=== PATIENT | male | born 1935 | race Caucasian/White ===

== ENCOUNTER 2017-11-11 11:30 | Outpatient (CLI) | payer MEDICARE, OTHER | END 2017-11-11 11:31 | disposition critical access hospital (66) | LOC: EMS 11:30 | PROVIDERS: ATTEND Surgery | DX: R47.9 Unspecified speech disturbances (principal); R41.82 Altered mental status, unspecified; R53.1 Weakness | CPT/HCPCS: A0425; A0429 ==

== ENCOUNTER 2017-11-11 11:43 | Inpatient (IN) | payer MEDICARE, OTHER ==
[2017-11-11] MEDS ORDERED: IOPAMIDOL-300 100 ML VIAL ONE (12:10)
--- NOTE | 2017-11-11 12:21 | CT Report ---
Procedure Date: 11/11/2017 Accession Number: [id number] / [id number] Procedure: CT - Head W/O CPT Code: FULL RESULT: EXAM: CT HEAD EXAM DATE: 11/11/2017 12:08 PM. CLINICAL HISTORY: Aphasia and confusion. COMPARISON: 02/17/2006. TECHNIQUE: Multiaxial CT images were obtained from the foramen magnum to the vertex. Reformats: Sagittal and coronal. IV contrast: None. In accordance with CT protocol optimization, one or more of the following dose reduction techniques were utilized for this exam: automated exposure control, adjustment of mA and/or KV based on patient size, or use of iterative reconstructive technique. FINDINGS: Parenchyma: No intraparenchymal hemorrhage. No evidence of mass, midline shift, or CT findings of acute infarction. There are old infarcts in the right caudate, left basal ganglia and left thalamus Cantor-white differentiation is distinct. Diffuse chronic microangiopathic white matter changes are evident. Extraaxial Spaces: Normal for age. No subdural or epidural collections identified. Ventricles: The ventricles and cortical sulci are enlarged, consistent with age-related tissue loss. Sinuses and orbits: Imaged paranasal sinuses, orbits, and mastoids show no significant abnormality. Bones: No evidence of fracture or calvarial defect. Other: None. IMPRESSION: Generalized age-related and chronic vascular changes without evidence of acute intracranial abnormality. Results called to Dr. Millan 12:15 PM 11/11/2017 [facility]
--- NOTE | 2017-11-11 12:40 | ED Physician Documentation ---
PD HPI FOCAL NEURO - Stated complaint Stated Complaint: STROKE LIKE SYMPTOMS - Chief complaint Chief Complaint: Neuro - History obtained from History obtained from: Patient, Family, EMS - History of Present Illness Timing - onset: Enter time (929), Today Timing - duration: Minutes Timing - details: Abrupt onset, Still present Time of symptom onset unknown: Time of onset unknown (awoke with symptoms last night was driving and felt tired.) Severity of deficit: Severe Weakness: Face, Right Associated symptoms: Other (unable to answer) Contributing factors: positive: Anticoagulated (plavix). 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 He was driving last night and this is last known normal. The son of the patient went into his room about 8:00 this morning and found that the patient was having some trouble talking. The patient had some improvement did not want to go to the hospital and then by about 1020 this morning his symptoms were profoundly worse.The patient himself is unable to give any specific history.History is obtained from the ammunition supervisor and the patient's son by telephone who is at the patient's home. Review of Systems Unable to obtain: AMS PD ED PE NORMAL - Vitals Vital signs reviewed: Yes - General General: No acute distress, Other (Thin male with a defect in the left neck appears confused and is unable to provide answers or cooperate with exam. ) - HEENT HEENT: PERRL, EOMI, Other (dry mucous membranes ) - Neck Neck: Supple, no meningeal sign, Other (There is a surgical site at the left neck that appears well healed. There is a subcutaneous fluid collection that does not appear tender. ) - Cardiac Cardiac: No murmur, Other (irregularly irregular rate and rhythm ) - Respiratory Respiratory: No respiratory distress, Clear bilaterally - Abdomen Abdomen: Soft, Non tender - Back Back: No CVA TTP, No spinal TTP - Derm Derm: Normal color, Warm and dry, No rash - Extremities Extremities: No deformity, No edema - Neuro Neuro: Other ( The patient is unable to cooperate with exam. The right arm is held in flexion, the patient is aphasic with word salad as the only comprehensible speech. Both legs drop the left arm is held out when put there but he is unable to follow comand to move the arm. ) Eye Opening: Spontaneous Motor: Localizes to Pain Verbal: Inappropriate GCS Score: 12 - Psych Psych: Normal mood, Other (affect is flat) NIHSS - Time Time: 12:00 - Level of Consciousness Level of consciousness: (1) Not alert, but arousable by minor stimulation to obey, or answer LOC Questions: (2) Answers neither correct LOC Commands: (2)Performs none - Gaze Best Gaze: (1) Partial gaze palsy - Visual Visual: (0) No loss - Facial Palsy Facial Palsy: (1) Minor paralysis - Motor Arms (both separate) Motor Arm (right): (2) Some effort against gravity Motor Arm (left): (0) No drift - Motor Legs (both separate) Motor Leg (right): (3) No effort against gravity Motor Leg (left): (3) No effort against gravity - Limb Ataxia Limb Ataxia: (2) Present in 2 limbs - Sensory Sensory: (1) Ygxd-rd-[id number] loss - Best Language Best Language: (2) Severe aphasia - Dysarthria Dysarthria: (1) Zfba-dt-obambqde dysarthria - Extinction and Inattention (formally neg Extinction and inattention: (2) Profound angel-inattention or extinction to more than one modality - Total Score/Results Total Score/Result: 23 Results - Vitals Vitals: Vital Signs - 24 hr 11/11/17 11/11/17 11:59 13:35 Temperature 36.5 C Heart Rate 55 L 57 L Respiratory 25 H 16 Rate Blood Pressure 191/76 H 212/84 H O2 Saturation 98 100 Oxygen O2 Source Room air - EKG (time done) 1236 Rate: Rate (enter#) (60) Rhythm: Atrial flutter, Atrial fibrillation QRS: LVH Compare to prior EKG: Old EKG unavailable Computer interpretation: Agree with computer - Labs Labs: Laboratory Tests 11/11/17 11/11/17 11/11/17 12:45 12:45 12:45 WBC 11.1 H RBC 3.83 L Hgb 12.5 L Hct 36.7 L MCV 95.8 H MCH 32.5 H MCHC 33.9 RDW 15.3 H Plt Count 205 MPV 8.5 Neut # (Auto) 9.4 H Lymph # (Auto) 0.9 L Curry # (Auto) 0.7 Eos # (Auto) 0.1 Baso # (Auto) 0.1 Absolute Nucleated RBC 0.00 Nucleated RBC % 0.0 PT 12.2 INR 1.1 APTT 26.7 Sodium 136 Potassium 3.8 Chloride 104 Carbon Dioxide 23 Anion Gap 9.0 BUN 19 Creatinine 0.8 Estimated GFR (MDRD) 93 Glucose 116 H Lactic Acid Calcium 8.7 Total Bilirubin 1.0 AST 18 ALT 16 Alkaline Phosphatase 62 Troponin I Total Protein 7.0 Albumin 3.8 Globulin 3.2 Albumin/Globulin Ratio 1.2 Lipase 25 11/11/17 11/11/17 12:45 12:45 WBC RBC Hgb Hct MCV MCH MCHC RDW Plt Count MPV Neut # (Auto) Lymph # (Auto) Curry # (Auto) Eos # (Auto) Baso # (Auto) Absolute Nucleated RBC Nucleated RBC % PT INR APTT Sodium Potassium Chloride Carbon Dioxide Anion Gap BUN Creatinine Estimated GFR (MDRD) Glucose Lactic Acid 1.8 Calcium Total Bilirubin AST ALT Alkaline Phosphatase Troponin I < 0.04 Total Protein Albumin Globulin Albumin/Globulin Ratio Lipase - Rads (name of study) CT head without Radiology: Prelim report reviewed (Impression: Generalized age-related and chronic vascular changes without evidence of acute intracranial abnormality.), EMP read indepedently, See rad report CTA head and neck Radiology: Prelim report reviewed (See the radiologist report for details of the impression there are no specific large vessel occlusions demonstrated on the CT a of the head and neck. There are details to the exam which are extensive.), Discussed with rads, See rad report PD MEDICAL DECISION MAKING - ED course Complexity details: reviewed old records, reviewed results, re-evaluated patient , considered differential, d/w patient, d/w family, d/w data governance consultant (Dr. Marroquin neurology at [facility] stroke center: CTA head and neck and CT head reviewed. The time of onset is unknown awoke with symptoms excludes use of tPA and CTA without large vessle occlusion will need post stroke care. Nothing specific to offer from the stroke center today. call for assistance with further care. ) ED course: 82-year-old male with recent neck surgery has appears to be in atrial fibrillation and this is a new rhythm for him and he appears to have sustained a CVA that is left him with a profound aphasia. CT of the head is without evidence of hemorrhage CTA of the neck without evidence of large vessel occlusion and the stroke team at [facility] is consulted in the case recommends conservative treatment. Dr. David was consulted in the case and will admit the patient to the hospital here. We did attempt to find records from the patient' s recent care at [facility]. We found that he likely had a biopsy done of this area ultrasound-guided about 12 days ago. I was able to speak with the patient' s son by telephone and he indicates the patient is normally in full operational mode and was driving last night. After arrangements are made for admission of the patient to the hospital he is able to get up and stand at the side of the bed to urinate and is able to talk some. - Sepsis Event Vital Signs: Vital Signs - 24 hr 11/11/17 11/11/17 11:59 13:35 Temperature 36.5 C Heart Rate 55 L 57 L Respiratory 25 H 16 Rate Blood Pressure 191/76 H 212/84 H O2 Saturation 98 100 Oxygen O2 Source Room air Departure - Departure Disposition: 66 [facility] DC/Xfer Clinical Impression: Cerebrovascular accident (CVA) Qualifiers: CVA mechanism: unspecified Qualified Code(s): I63.9 - Cerebral infarction, unspecified Condition: Stable
[2017-11-11 12:52] LABS: BASOPHILS # (AUTO) 0.1 10^3/uL (0.0-0.1); BASOPHILS % (AUTO) 0.8 %; EOSINOPHILS # (AUTO) 0.1 10^3/uL (0.0-0.7); EOSINOPHILS % (AUTO) 0.6 %; HGB - HEMOGLOBIN 12.5 g/dL (14.0-18.0); LYMPHOCYTES # (AUTO) 0.9 10^3/uL (1.5-3.5); MEAN CORPUSCULAR HEMOGLOBIN 32.5 pg (27.0-31.0); MEAN CORPUSCULAR HGB CONC 33.9 g/dL (32.0-36.0); MEAN CORPUSCULAR VOLUME 95.8 fL (80.0-94.0); MEAN PLATELET VOLUME 8.5 fL (7.4-11.4); MONOCYTES # (AUTO) 0.7 10^3/uL (0.0-1.0); MONOCYTES % (AUTO) 5.9 %; NEUTROPHILS # (AUTO) 9.4 10^3/uL (1.5-6.6); NEUTROPHILS % (AUTO) 84.7 %; PLT - PLATELET COUNT 205 10^3/uL (130-450); RED BLOOD COUNT 3.83 10^6/uL (4.70-6.10); RED CELL DISTRIBUTION WIDTH 15.3 % (12.0-15.0); WHITE BLOOD COUNT 11.1 x10^3/uL (4.8-10.8)
[2017-11-11 13:03] LABS: INR 1.1 (0.8-1.2); PT - PROTHROMBIN TIME 12.2 secs (9.9-12.6)
[2017-11-11] MEDS ORDERED: IOPAMIDOL-300 100 ML VIAL IVP ONE (13:04)
[2017-11-11 13:06] LABS: ALBUMIN 3.8 g/dL (3.2-5.5); ALBUMIN/GLOBULIN RATIO 1.2 (1.0-2.2); CALCIUM 8.7 mg/dL (8.5-10.3); CREATININE 0.8 mg/dL (0.6-1.2)
--- NOTE | 2017-11-11 13:06 | CT Report ---
Procedure Date: 11/11/2017 Accession Number: [id number] / [id number] Procedure: CT - Head Angio CPT Code: FULL RESULT: EXAM: CT ANGIOGRAM HEAD. CT SCAN OF THE HEAD WITH CONTRAST. EXAM DATE: 11/11/2017 12:34 PM CLINICAL HISTORY: 82-year-old male. Aphasia and confusion. COMPARISON: Noncontrast CT head performed concurrently TECHNIQUE: - CT Scan Head: Using a multidetector scanner, axial images were acquired from the foramen magnum to the skull vertex prior to and following contrast administration. - CT Angiogram: Using a multidetector scanner, high-resolution axial images were acquired from the skull base through vertex following rapid infusion of intravenous contrast. Reformats: Multiplanar MIP reformats were reconstructed. Nascet criteria used for stenosis measurement. IV Contrast: ISOVUE 300 80mL. In accordance with CT protocol optimization, one or more of the following dose reduction techniques were utilized for this exam: automated exposure control, adjustment of mA and/or KV based on patient size, or use of iterative reconstructive technique. FINDINGS: NON-CONTRAST HEAD: Concurrently obtain noncontrast CT head has been dictated separately. POST-CONTRAST HEAD: No abnormal enhancement. CT ANGIOGRAM HEAD: Moderate to severe atherosclerosis right carotid siphon, maximal stenosis likely greater than 70%. Moderate to severe atherosclerosis left carotid siphon, maximal stenosis likely greater than 70%. Moderate atherosclerosis V4 segment right vertebral artery, maximal stenosis 20-30%. Severe atherosclerosis V4 segment left vertebral artery, maximal stenosis likely greater than 70-80 %. Approximately 50% narrowing distal basilar artery. Irregularity of the M1 segment right MCA (series 8 image 61) with up to 20-30% narrowing. The right MCA is otherwise unremarkable. The ACAs bilaterally are unremarkable. Approximately 60% narrowing superiorly directed M2 branch left MCA (series 8 image 60). The left MCA is otherwise unremarkable. The posterior communicating arteries are not clearly visualized on either side, likely hyperplastic or aplastic. Approximately 50% narrowing P1 and P2 segments of the left NAIL FEEDER. Approximately 50% narrowing distal P1 and mid P2 segments of the left NAIL FEEDER. DURAL VENOUS SINUSES AND MAJOR CENTRAL VEINS: Patent. The right transverse sinus is dominant. IMPRESSION: 1. Concurrently obtain noncontrast CT head has been dictated separately. 2. No abnormal enhancement on the postcontrast CT head. 3. Extensive atherosclerotic vascular disease as detailed above and summarized below. No CTA evidence of hemodynamically large vessel occlusion, acute dissection, aneurysm, or vascular malformation within intracranial arteries. 4. Moderate to severe atherosclerosis right carotid siphon, maximal stenosis likely greater than 70%. 5. Moderate to severe atherosclerosis left carotid siphon, maximal stenosis likely greater than 70%. 6. Moderate atherosclerosis V4 segment right vertebral artery, maximal stenosis 20-30%. 7. Severe atherosclerosis V4 segment left vertebral artery, maximal stenosis likely greater than 70-80 %. 8. Approximately 50% narrowing distal basilar artery. 9. Diffuse irregularity of the M1 segment right MCA (series 8 image 61) with up to 20-30% narrowing. 10. Approximately 60% narrowing superiorly directed M2 branch left MCA (series 8 image 60). 11. Approximately 50% narrowing P1 and P2 segments of the left NAIL FEEDER. 12. Approximately 50% narrowing distal P1 and mid P2 segments of the left NAIL FEEDER. [facility]
--- NOTE | 2017-11-11 13:19 | CT Report ---
Procedure Date: 11/11/2017 Accession Number: [id number] / [id number] Procedure: CT - Neck Angio CPT Code: FULL RESULT: EXAM: CT ANGIOGRAM NECK EXAM DATE: 11/11/2017 12:34 PM. CLINICAL HISTORY: Aphasia and confusion. COMPARISON: CTA head performed concurrently, noncontrast CT head performed concurrently TECHNIQUE: Routine axial helical imaging was performed from the skull base through the aortic arch. Reconstructions: Routine multiplanar 3D MIP reconstructions. IV Contrast: ISOVUE 300 80mL. Evaluation of arterial stenosis is based on a NASCET method of measurement. In accordance with CT protocol optimization, one or more of the following dose reduction techniques were utilized for this exam: automated exposure control, adjustment of mA and/or KV based on patient size, or use of iterative reconstructive technique. FINDINGS: Right Carotid: Mild atherosclerosis right carotid bifurcation, no hemodynamically significant stenosis. The common carotid, internal carotid, and external carotid arteries are widely patent. No dissection, significant atherosclerotic plaque, or calcification identified. Left Carotid: The common carotid, internal carotid, and external carotid arteries are widely patent. No dissection, significant atherosclerotic plaque, or calcification identified. Vertebrals: Intracranial vertebral arteries are discussed with the separately dictated CTA head. Moderate atherosclerosis left vertebral artery origin, maximal stenosis 40-50%. The remaining left extracranial vertebral arteries unremarkable. The extracranial right vertebral artery is unremarkable. Intracranial Circulation: Concurrent dictated CTA head has been dictated separately. Other: The visualized lung apices are clear. Moderate to severe multilevel degenerative spondylosis of the visualized spine, no acute fracture or malalignment. The patient is likely status post left parotidectomy and left neck dissection. There is a nonspecific peripheral enhancing fluid collection within the left lateral neck just inferior to the expected location of the parotid gland with foci of gas, measuring maximally approximately 1.4 x 2.2 x 4.2 cm. Surgical hien within the neck from prior dissection The visualized soft tissues of the neck otherwise demonstrate no acute abnormality. IMPRESSION: 1. Concurrent dictated CTA head has been dictated separately. 2. Intracranial vertebral arteries are discussed with the separately dictated CTA head. Moderate atherosclerosis left vertebral artery origin, maximal stenosis 40-50%. The remaining left extracranial vertebral arteries unremarkable. The extracranial right vertebral artery is unremarkable. 3. No hemodynamically significant stenosis involving the extracranial carotid systems on either side. 4. The patient is likely status post left parotidectomy and left neck dissection. There is a nonspecific peripheral enhancing fluid collection within the left lateral neck just inferior to the expected location of the parotid gland with foci of gas, measuring maximally approximately 1.4 x 2.2 x 4.2 cm. Fluid collection is nonspecific for postoperative seroma versus abscess. Recommend clinical correlation. [facility] The above findings were discussed with Wyatt Millan by Dr. Jyothi Cortez at 13:17 hrs on 11/11/17.
[2017-11-11] MEDS ORDERED: ONDANSETRON 4 MG/2 ML VIAL IVP PRN (15:16)
[2017-11-11] MEDS ORDERED: SODIUM CHLORIDE FLUSH 0.9% 10 ML SYRINGE IVP PRN (15:16)
[2017-11-11] MEDS ORDERED: ACETAMINOPHEN 325 MG TABLET PO PRN (15:16)
[2017-11-11] MEDS ORDERED: cloNIDine 0.1 MG TABLET PO PRN (15:48)
--- NOTE | 2017-11-11 15:50 | HISTORY & PHYSICAL EXAMINATION ---
Chief Complaint - Chief Complaint Chief Complaint: stroke History of Present Illness - History of Present Illness HPI Comment/Other: Mr. 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 Unfortunately pt is aphasia now, currently no pt's family member is at pt's bedside, and I could not reach pt's family by phone. All pt's informations are from medical records. Pt was found normal as usual on last night. Pt's son entered into pt's room around 8am, and found pt to have trouble talking. Pt presented some improvement and did not want to go to hospital. Around 1020, pt's symptoms became significant worse. Pt presents right facial droop, significant weakness on right both upper and lower extremities. CT of head reveals unremarkable, without haemorrhage. History - Past Medical History Neuro: reports: CVA, TIA HEENT: reports: None Other Past Medical History: Active cancer. Recent tumor removal from neck. Starts chemo 11/12/17 per son. - Past Surgical History General: reports: Other - Family & Social History Family History Comment/Other: pt is aphasia, no family member is at bedside Meds/Allgy - Home Medications Home Medications: Ambulatory Orders Medication Instructions Recorded Confirmed Clopidogrel Bisulfate [Clopidogrel] 75 mg PO DAILY 11/11/17 11/11/17 Furosemide 80 mg PO DAILY 11/11/17 11/11/17 Losartan Potassium 50 mg PO DAILY 11/11/17 11/11/17 Meclizine HCl [Motion Sickness 25 mg PO QPM 11/11/17 11/11/17 Relief] - Allergies Allergies/Adverse Reactions: Allergies Allergy/AdvReac Type Severity Reaction Status Date / Time No Known Drug Allergies Allergy Verified 11/11/17 16:46 Review of Systems - Other Findings Other Findings: pt is aphasia, could not provide ROS Exam - Vital Signs Reviewed Vital Signs: Yes Vital Signs: Vital Signs x48h Temp Pulse Resp BP Pulse Ox 11/11/17 13:35 57 L 16 212/84 H 100 11/11/17 11:59 36.5 C 55 L 25 H 191/76 H 98 - Physical Exam General Appearance: positive: No acute distress, Mild distress. negative: Lethargic Eyes Bilateral: positive: Normal inspection, PERRL, No lid inflammation, Conjunctivae nml ENT: positive: Pharynx nml, No signs of dehydration. negative: Purulent nasal drainage, Pharyngeal erythema, Oral lesions Neck: positive: Nml inspection, Thyroid nml, No JVD, Trachea midline. negative : Thyromegaly, Lymphadenopathy (R), Lymphadenopathy (L), Stiff neck, Swelling/ bruising, Tracheal deviation Respiratory: positive: Chest non-tender, No respiratory distress, Breath sounds nml. negative: Wheezes, Rales, Rhonchi Cardiovascular: positive: Regular rate & rhythm, No murmur, No gallop. negative : Irregularly irregular, Extrasystoles, Tachycardia, Bradycardia, JVD present, Systolic murmur, Diastolic murmur Peripheral Pulses: positive: 2+ Abdomen: positive: Non-tender, No organomegaly, Nml bowel sounds, No distention. negative: Tenderness, Guarding, Rebound Back: positive: Nml inspection. negative: CVA tenderness (R), CVA tenderness (L ) Skin: positive: Color nml, No rash, Warm, Dry. negative: Cyanosis, Diaphoresis , Pallor Extremities: positive: Non-tender, Nml appearance. negative: Calf tenderness, Tessy's sign/cords Neurologic/Psychiatric: positive: Weakness, Facial droop, Slurred/abnml speech. negative: Motor nml Conclusion/Plan - Problem List (1) Cerebrovascular accident (CVA) Conclusion/Plan: pt is aphasia currently. pt's son come to hospital, report his father had one major stroke and many times of TIA before, but obtained total recovery. This time the stroke is much severe than before. MRI and ECHO Aspirin 325 mg, and Lipitor 80 mg daily tele, vital monitor allow BP increase neurological status check PT/OT/ST NPO now until assessed by [facility] Qualifiers: CVA mechanism: unspecified Qualified Code(s): I63.9 - Cerebral infarction, unspecified (2) Afib Conclusion/Plan: HR is controlled. Per pt's son report, pt may have medical-compliance problem, pt may not take his Plavix at home. Aspirin now continue tele, vital (3) HTN (hypertension) Conclusion/Plan: allow increase of BP, add Clonidine PRN (4) Squamous cell carcinoma Conclusion/Plan: pt had surgery 12 days ago, pt had fluid collection or abscess at Parotid gland. Called surgeon Dr. Timothy Nieto, will consult him as needed will closely monitor pt, any fever, chill follow up out-pt oncologist. (5) DVT prophylaxis Conclusion/Plan: SCD and Lovenox (6) Full code status Conclusion/Plan: full code - Lab Results Fish Bones: 11/11/17 12:45 11/11/17 12:45 Core Measures - Anticipated LOS I expect patient to be DC'd or transferred within 96 hours.: Yes - DVT/VTE - Prophylaxis VTE/DVT Device ordered at admit?: Yes VTE/DVT Prophylaxis med ordered at admit?: Yes
[2017-11-11] MEDS ORDERED: SODIUM CHLORIDE 0.9% 1,000 ML IV SCH ×2 (16:00)
[2017-11-11] MEDS: ASPIRIN 325 MG TABLET PO SCH (17:25)
[2017-11-11] MEDS: SODIUM CHLORIDE FLUSH 0.9% 10 ML SYRINGE IVP SCH (17:26)
[2017-11-11 18:10] LABS: BILIRUBIN,URINE NEGATIVE (NEGATIVE); GLUCOSE, URINE (UA) NEGATIVE (NEGATIVE); KETONES,URINE (UA) 40 mg/dL (NEGATIVE); LEUKOCYTE ESTERASE, URINE NEGATIVE (NEGATIVE); NITRITE,URINE NEGATIVE (NEGATIVE); OCCULT BLOOD,URINE NEGATIVE (NEGATIVE); PROTEIN,URINE TRACE mg/dL (NEGATIVE); UROBILINOGEN,URINE 0.2 (NORMAL) E.U./dL (NORMAL)
[2017-11-11 18:12] LABS: CLARITY,URINE CLEAR (CLEAR)
[2017-11-11] MEDS: D5.45NS W/20 MEQ KCL 1,000 ML IV SCH (18:20)
[2017-11-11] MEDS: ATORVASTATIN 40 MG TABLET PO SCH (20:06)
[2017-11-12] MEDS: SODIUM CHLORIDE FLUSH 0.9% 10 ML SYRINGE IVP SCH ×3 (03:12→18:22)
[2017-11-12 05:40] LABS: BASOPHILS # (AUTO) 0.1 10^3/uL (0.0-0.1); BASOPHILS % (AUTO) 0.9 %; EOSINOPHILS # (AUTO) 0.2 10^3/uL (0.0-0.7); EOSINOPHILS % (AUTO) 3.1 %; LYMPHOCYTES # (AUTO) 1.8 10^3/uL (1.5-3.5); LYMPHOCYTES % (AUTO) 24.3 %; MEAN CORPUSCULAR HGB CONC 34.3 g/dL (32.0-36.0); MEAN CORPUSCULAR VOLUME 96.4 fL (80.0-94.0); MEAN PLATELET VOLUME 8.6 fL (7.4-11.4); MONOCYTES # (AUTO) 0.6 10^3/uL (0.0-1.0); MONOCYTES % (AUTO) 8.6 %; NEUTROPHILS # (AUTO) 4.8 10^3/uL (1.5-6.6); NEUTROPHILS % (AUTO) 63.1 %; PLT - PLATELET COUNT 202 10^3/uL (130-450); RED BLOOD COUNT 3.63 10^6/uL (4.70-6.10); RED CELL DISTRIBUTION WIDTH 15.4 % (12.0-15.0); WHITE BLOOD COUNT 7.5 x10^3/uL (4.8-10.8)
[2017-11-12 05:52] LABS: ALBUMIN 3.4 g/dL (3.2-5.5); ALBUMIN/GLOBULIN RATIO 1.2 (1.0-2.2); BILIRUBIN,TOTAL 0.7 mg/dL (0.2-1.0); CALCIUM 8.6 mg/dL (8.5-10.3); CREATININE 0.7 mg/dL (0.6-1.2); MAGNESIUM 1.9 mg/dL (1.7-2.8); TOTAL PROTEIN 6.3 g/dL (6.7-8.2)
[2017-11-12] MEDS: D5.45NS W/20 MEQ KCL 1,000 ML IV SCH ×2 (06:05→20:30)
[2017-11-12] MEDS: ASPIRIN 325 MG TABLET PO SCH (09:12)
[2017-11-12] MEDS: FAMOTIDINE 20 MG TABLET PO SCH (09:12)
[2017-11-12] MEDS: ENOXAPARIN 40 MG/0.4 ML SYRINGE SUBQ SCH (09:12)
[2017-11-12] MEDS: POLYETHYLENE GLYCOL 3350 17 GM PACKET PO SCH (09:12)
--- NOTE | 2017-11-12 09:21 | PROVIDER PROGRESS NOTE ---
Subjective - Prog Note Date Prog Note Date: 11/12/17 - Subjective Pt reports feeling: Improved Subjective: pt's symptoms have some good improvement. Yesterday pt is totally aphasia. Pt today can speak slowly " I can not speak." Nurse report pt can walk with assistance to the bathroom. MRI of head and ECHO are pending. ST/PT/OT for pt today Current Medications - Current Medications Current Medications: Active Medications Acetaminophen (Tylenol) 650 mg PO Q4HR PRN PRN Reason: Pain 1 to 4 Aspirin (Sera) 325 mg PO DAILYWM [facility] Last Admin: 11/12/17 09:12 Dose: 325 mg Atorvastatin Calcium (Lipitor) 80 mg PO QPM [facility] Last Admin: 11/11/17 20:06 Dose: 80 mg Clonidine HCl (Catapres) 0.1 mg PO BID PRN PRN Reason: Hypertensive Emergency Enoxaparin Sodium (Lovenox) 40 mg SUBQ DAILY [facility] Last Admin: 11/12/17 09:12 Dose: 40 mg Famotidine (Pepcid) 20 mg PO DAILY [facility] Last Admin: 11/12/17 09:12 Dose: 20 mg Potassium Chloride/Dextrose/Sod Cl (D5.45ns W/20 Meq Kcl) 1,000 mls @ 83.333 mls/hr IV .Q12H [facility] Last Admin: 11/12/17 06:05 Dose: 83.333 mls/hr Ondansetron HCl (Zofran Inj) 4 mg IVP Q6HR PRN PRN Reason: Nausea / Vomiting Polyethylene Glycol (Miralax) 17 gm PO DAILY [facility] Last Admin: 11/12/17 09:12 Dose: 17 gm Sodium Chloride (Normal Saline Flush 0.9%) 10 ml IVP PRN PRN PRN Reason: NEEDED PER PROVIDER ORDERS Sodium Chloride (Normal Saline Flush 0.9%) 10 ml IVP 0100,0900,1700 [facility] Last Admin: 11/12/17 09:12 Dose: Not Given Clopidogrel Bisulfate [Clopidogrel] 75 mg PO DAILY 11/11/17 Furosemide 80 mg PO DAILY 11/11/17 Losartan Potassium 50 mg PO DAILY 11/11/17 Meclizine HCl [Motion Sickness Relief] 25 mg PO QPM 11/11/17 Objective - Vital Signs/Intake & Output Reviewed Vital Signs: Yes Vital Signs: Vital Signs x48h Temp Pulse Resp BP Pulse Ox 11/12/17 07:57 36.4 C L 60 20 151/91 H 100 11/12/17 05:00 36.9 C 60 18 135/70 H 97 Intake & Output: Intake & Output 11/09/17 11/10/17 11/11/17 11/12/17 23:59 23:59 23:59 23:59 Intake Total 68.75 1000 Output Total 200 Balance -131.25 1000 - Objective General Appearance: positive: No acute distress, Alert. negative: Lethargic Eyes Bilateral: positive: Normal inspection, PERRL, No lid inflammation, Conjunctivae nml ENT: positive: Pharynx nml, No signs of dehydration. negative: Purulent nasal drainage, Pharyngeal erythema, Oral lesions Neck: positive: Thyroid nml, No JVD, Trachea midline, Other (pt has a small fluid collection at his left neck. pt had biopsy for his SCC cancer. There is no erythema, warm, tenderness at left neck.). negative: Thyromegaly, Lymphadenopathy (R), Lymphadenopathy (L), Stiff neck, Swelling/bruising, Tracheal deviation Respiratory: positive: Chest non-tender, No respiratory distress, Breath sounds nml. negative: Wheezes, Rales, Rhonchi Cardiovascular: positive: Regular rate & rhythm, No murmur, No gallop. negative : Irregularly irregular, Extrasystoles, Tachycardia, Bradycardia, JVD present, Systolic murmur, Diastolic murmur Peripheral Pulses: 2+ Radial (R), 2+ Radial (L), 2+ Dorsalis pedis (R), 2+ Dorsalis pedis (L) Abdomen: positive: Non-tender, No organomegaly, Nml bowel sounds, No distention. negative: Tenderness, Guarding, Rebound Back: positive: Nml inspection. negative: CVA tenderness (R), CVA tenderness (L ) Skin: positive: No rash, Warm, Dry. negative: Cyanosis, Diaphoresis, Pallor Extremities: positive: Non-tender, Nml appearance. negative: Calf tenderness, Joint swelling, Tessy's sign/cords Neurologic/Psychiatric: positive: Weakness, Sensory loss, Facial droop, Slurred/ abnml speech - Lab Results Fish Bones: 11/12/17 05:30 11/12/17 05:30 Other Labs: Lab Results x24hrs 08/23/18 08/23/18 08/22/18 Range/Units 05:30 05:30 18:00 WBC 7.5 (4.8-10.8) x10^3/uL RBC 3.63 L (4.70-6.10) 10^6/uL Hgb 12.0 L (14.0-18.0) g/dL Hct 35.0 L (42.0-52.0) % MCV 96.4 H (80.0-94.0) fL MCH 33.0 H (27.0-31.0) pg MCHC 34.3 (32.0-36.0) g/dL RDW 15.4 H (12.0-15.0) % Plt Count 202 (130-450) 10^3/uL MPV 8.6 (7.4-11.4) fL Neut # (Auto) 4.8 (1.5-6.6) 10^3/uL Lymph # (Auto) 1.8 (1.5-3.5) 10^3/uL [place] # (Auto) 0.6 (0.0-1.0) 10^3/uL Eos # (Auto) 0.2 (0.0-0.7) 10^3/uL Baso # (Auto) 0.1 (0.0-0.1) 10^3/uL Absolute Nucleated RBC 0.00 x10^3/uL Nucleated RBC % 0.0 /100WBC Sodium 135 (135-145) mmol/L Potassium 3.7 (3.5-5.0) mmol/L Chloride 106 (101-111) mmol/L Carbon Dioxide 25 (21-32) mmol/L Anion Gap 4.0 L (6-13) BUN 15 (6-20) mg/dL Creatinine 0.7 (0.6-1.2) mg/dL Estimated GFR (MDRD) 108 (>89) Glucose 117 H (70-100) mg/dL Calcium 8.6 (8.5-10.3) mg/dL Magnesium 1.9 (1.7-2.8) mg/dL Total Bilirubin 0.7 (0.2-1.0) mg/dL AST 15 (10-42) IU/L ALT 12 (10-60) IU/L Alkaline Phosphatase 54 (42-121) IU/L Total Protein 6.3 L (6.7-8.2) g/dL Albumin 3.4 (3.2-5.5) g/dL Globulin 2.9 (2.1-4.2) g/dL Albumin/Globulin Ratio 1.2 (1.0-2.2) Urine Color YELLOW Urine Clarity CLEAR (CLEAR) Urine pH 8.0 H (5.0-7.5) PH Ur Specific [place] 1.015 (1.002-1.030) Urine Protein TRACE (NEGATIVE) mg/dL Urine Glucose (UA) NEGATIVE (NEGATIVE) mg/dL Urine Ketones 40 H (NEGATIVE) mg/dL Urine Occult Blood NEGATIVE (NEGATIVE) Urine Nitrite NEGATIVE (NEGATIVE) Urine Bilirubin NEGATIVE (NEGATIVE) Urine Urobilinogen 0.2 (NORMAL) (NORMAL) E.U./dL Ur Leukocyte Esterase NEGATIVE (NEGATIVE) Ur Microscopic Review NOT INDICATED Urine Culture Comments NOT INDICATED ABX Reporting Has patient been on IV antibiotics over the past 48 hours?: No Assessment/Plan - Problem List (1) Cerebrovascular accident (CVA) Impression: Conclusion/Plan: 11/12 pt had significantly improvement after over night. Pt can slowly speak, can walk with assistance to bathroom continue PT/OT/ST, pt will need diet order after ST evaluation continue Aspirin and Lipitor discuss with pt about his medical compliance. It seems pt had an issue for his medical noncompliance. pt is aphasia currently. pt's son come to hospital, report his father had one major stroke and many times of TIA before, but obtained total recovery. This time the stroke is much severe than before. MRI and ECHO Aspirin 325 mg, and Lipitor 80 mg daily tele, vital monitor allow BP increase neurological status check PT/OT/ST NPO now until assessed by ST IVF (2) Afib Conclusion/Plan: stable HR continue tele, vital HR is controlled. Per pt's son report, pt may have medical-compliance problem, pt may not take his Plavix at home. Aspirin now continue tele, vital (3) HTN (hypertension) Conclusion/Plan: allow increase of BP, add Clonidine PRN (4) Squamous cell carcinoma Conclusion/Plan: 11/12 I assess the surgery site. There is no erythema, tenderness or warm. There is a fluid collect after procedure as CT reveals. continue to monitor and support pt had surgery 12 days ago, pt had fluid collection or abscess at Parotid gland. Called surgeon Dr. Timothy Nieto, will consult him as needed will closely monitor pt, any fever, chill follow up out-pt oncologist. Qualifiers: CVA mechanism: unspecified Qualified Code(s): I63.9 - Cerebral infarction, unspecified
--- NOTE | 2017-11-12 15:29 | MRI Report ---
Procedure Date: 11/12/2017 Accession Number: [id number] / [id number] Procedure: MRI - Brain W/O CPT Code: FULL RESULT: EXAM: MRI BRAIN WITHOUT CONTRAST EXAM DATE: 11/12/2017 02:26 PM. CLINICAL HISTORY: Suspected stroke. History of recent neck surgery. COMPARISON: Prior CT angiogram head and neck 11/11/2017, CT study head 11/11/2017. TECHNIQUE: Multiplanar, multisequence T1-weighted and fluid-sensitive MR sequences of the brain were performed. Sequences optimized for routine evaluation. Other: None. IV Contrast: None. Findings: Relevant images are indicated (image number, series number). There is no acute, subacute ischemic change in the brain. Gradient echo imaging demonstrates no hemosiderin deposition present in the brain. There is no hemorrhage, mass or midline shift. Mild generalized brain atrophy, moderate dense scattered periventricular, subcortical white matter disease. Multifocal old strokes left thalamus,, questionable old stroke versus perivascular space present abutting the left posterior limb of the internal capsule near the genu. There is suspected old ischemic disease right caudate head, right anterior limb of the internal capsule. Moderate mid brain atrophy. Pituitary, cranial cervical junction, limited evaluation upper cervical cord negative. Impressions: 1. No acute/subacute ischemic change. 2. Multifocal suspected old ischemic disease as detailed, superimposed moderate scattered dense white matter disease most likely related to chronic small vessel ischemic disease. 3. Mild generalized brain atrophy. RADIA
[2017-11-12] MEDS: ATORVASTATIN 40 MG TABLET PO SCH (20:31)
[2017-11-13] MEDS: SODIUM CHLORIDE FLUSH 0.9% 10 ML SYRINGE IVP SCH (03:25)
[2017-11-13 06:33] LABS: BASOPHILS % (AUTO) 0.8 %; EOSINOPHILS # (AUTO) 0.2 10^3/uL (0.0-0.7); EOSINOPHILS % (AUTO) 3.4 %; HGB - HEMOGLOBIN 11.8 g/dL (14.0-18.0); LYMPHOCYTES # (AUTO) 1.5 10^3/uL (1.5-3.5); LYMPHOCYTES % (AUTO) 23.8 %; MEAN CORPUSCULAR HEMOGLOBIN 32.9 pg (27.0-31.0); MEAN CORPUSCULAR VOLUME 96.8 fL (80.0-94.0); MONOCYTES # (AUTO) 0.6 10^3/uL (0.0-1.0); MONOCYTES % (AUTO) 9.7 %; NEUTROPHILS # (AUTO) 3.9 10^3/uL (1.5-6.6); NEUTROPHILS % (AUTO) 62.3 %; PLT - PLATELET COUNT 195 10^3/uL (130-450); RED BLOOD COUNT 3.59 10^6/uL (4.70-6.10); RED CELL DISTRIBUTION WIDTH 15.3 % (12.0-15.0); WHITE BLOOD COUNT 6.3 x10^3/uL (4.8-10.8)
[2017-11-13 06:49] LABS: ALBUMIN 3.4 g/dL (3.2-5.5); ALBUMIN/GLOBULIN RATIO 1.2 (1.0-2.2); BILIRUBIN,TOTAL 0.7 mg/dL (0.2-1.0); CALCIUM 8.5 mg/dL (8.5-10.3); CREATININE 0.8 mg/dL (0.6-1.2); TOTAL PROTEIN 6.3 g/dL (6.7-8.2)
[2017-11-13 07:09] LABS: CHOL/HDL RATIO 2.6 (<5.0); CHOLESTEROL 115 mg/dL; HDL CHOLESTEROL 45 mg/dL; LDL CHOLESTEROL,CALCULATED 60 mg/dL; LDL/HDL RATIO 1.3 (<3.6); VLDL CHOLESTEROL 10 mg/dL
[2017-11-13] MEDS: ENOXAPARIN 40 MG/0.4 ML SYRINGE SUBQ SCH (08:11)
[2017-11-13] MEDS: ASPIRIN 325 MG TABLET PO SCH (08:11)
[2017-11-13] MEDS: FAMOTIDINE 20 MG TABLET PO SCH (08:12)
[2017-11-13] MEDS: POLYETHYLENE GLYCOL 3350 17 GM PACKET PO SCH (08:18)
[2017-11-13 10:39] VITALS: BP 197/77
[2017-11-13] MEDS: D5.45NS W/20 MEQ KCL 1,000 ML IV SCH (11:06)
--- NOTE | 2017-11-13 11:18 | DISCHARGE SUMMARY ---
Discharge Summary Admit Date: 11/11/17 Discharge Date: 11/13/17 Discharging Provider: JALYN Dawson Primary Care Provider: Edward Huddleston Code Status: Attempt Resuscitation Condition at Discharge: Fair Discharge Disposition: [facility] - DIAGNOSES Admission Diagnoses: Cerebral infarction, unspecified (I63.9) Unspecified atrial fibrillation (I48.91) Essential (primary) hypertension (I10) Personal history of transient ischemic attack (TIA), and cerebral infarction without residual deficits (Z86.73) Discharge Diagnoses with Status of Each Condition: Dysphasia (R47.02) improved, patient to continue thickened liquids. Aphasia (R47.01) improved and nearly resolved. HTN (hypertension) (I10) chronic, stable. Hx TIA/stroke w/o resid (Z86.73) chronic, ruled out acute stroke. Afib (I48.91) chronic, stable. Squamous cell carcinoma (C44.92) chronic, care to continue with oncology. 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 He presented to the ER for evaluation and treatment of right side focal neurological deficits. Unfortunately the patient had acute aphasia during the initial exam and family was not present. A review of medical record was made by the admitting provider. The patient was noted to start having symptoms last night and when his son entered the patient's room around 8am, he was found to have trouble talking. He was reluctant in calling the EMS. Since arriving in the ED the patient showed mild improvement. Upon exam, the patient presents with a right facial droop, significant weakness of right both upper and lower extremities. A CT of the head showed no acute stroke, and was without haemorrhage. - HOSPITAL COURSE Hospital Course: The following diagnoses were prevalent during this hospital stay: (1) Cerebrovascular accident (CVA) The patient's presenting symptoms were aphasia, right sided facial droop and bilateral arm and leg weakness. The patient's son, who the patient lives with, confirmed that his father had one major stroke and several TIAs, but he is thought to have obtained total recovery. Final imaging report for a brain MRI shows no acute infarcts, or ischemic changes. It does confirm evidence of prior multifocal old areas of ischemia, superimposed moderate scattered dense matter disease most likely related to chronic small vessel ischeimic disease. Mild generalized brain atrophy. The patient was continued on Aspirin 325 mg, and Lipitor 80 mg daily. Physical therapy, occupational therapy and speech therapy evaluated and treated the patient and he was found to require a thickened liquid, soft food diet. Thickening powder packets were sent home with the patient and a prescription for thickener was sent to the pharmacy. Discussion with the family about the patient's suspected lack of medical compliance. This condition was ruled out and considered to be stable by the time of discharge with an improvement of presenting symptoms. (2) Afib The patient has a history of this and upon admission an EKG showed ongoing atrial fib/flutter, which is considered stable. At the time of discharge the patient's heart rate remained in the 50-60's. He is prescribed furosemide, losartan, Plavix, and aspirin at home which were continued upon discharge. (3) HTN (hypertension) The patient is prescribed furosemide and losartan at home as he has a long history of hypertension. With the patient initially having acute stroke symptoms, his blood pressure was allowed to passively stay elevated, and his home medications were resumed upon discharge. (4) Squamous cell carcinoma The patient had recent surgery, about 12 days ago and per imaging remains with a fluid collection or abscess near the left Parotid gland. Our general surgery team was contacted who advised no interventions and this may be an expected post -surgical finding and is likely not contributing to his symptoms. The patient was closely monitored and his left neck surgical site was left open to air and did not show any signs of infection or cellulitis. He did not have fever or chills while in the hospital and was encouraged to follow up with his oncologist. (5) Dysphasia The patient was evaluated by our speech therapist who advised for the patient to have thickened liquids. Upon exam on the day of discharge, the patient had clear lungs and was not thought to be aspirating. A prescription for a thickener powder was sent to the patient's pharmacy and a few individual packets were also given to him. This condition is considered to be in stable condition and he was told to promptly follow up with his PCP for out patient speech therapy. Disposition: The patient was in stable condition, did not require oxygen and was ambulatory at his baseline upon discharge. He was taken via private car home with family. - ALLERGIES Allergies/Adverse Reactions: Allergies Allergy/AdvReac Type Severity Reaction Status Date / Time No Known Drug Allergies Allergy Verified 11/11/17 16:46 - MEDICATIONS Home Medications: Ambulatory Orders Medication Instructions Recorded Confirmed Clopidogrel Bisulfate [Clopidogrel] 75 mg PO DAILY 11/11/17 11/11/17 Furosemide 80 mg PO DAILY 11/11/17 11/11/17 Losartan Potassium 50 mg PO DAILY 11/11/17 11/11/17 Meclizine HCl [Motion Sickness 25 mg PO QPM 11/11/17 11/11/17 Relief] Cellulose Gum [Thik & Clear] 1 each PO QID #120 packet 11/13/17 - PHYSICAL EXAM AT DISCHARGE General Appearance: positive: No acute distress, Alert Eyes Bilateral: positive: Normal inspection ENT: positive: ENT inspection nml, Pharynx nml, No signs of dehydration, Dry mucous membranes Neck: positive: Thyroid nml, No JVD, Swelling/bruising (Left neck, biopsy site) , Tracheal deviation Respiratory: positive: Chest non-tender, No respiratory distress, Breath sounds nml Cardiovascular: positive: Regular rate & rhythm, No gallop, Systolic murmur Peripheral Pulses: positive: 2+ Abdomen: positive: Non-tender, No organomegaly, Nml bowel sounds, No distention Back: positive: Nml inspection Skin: positive: No rash, Warm, Dry Extremities: positive: Non-tender, Full ROM, Nml appearance Neurologic/Psychiatric: positive: Oriented x3, CN's nml (2-12), Weakness, Sensory loss, Facial droop (left facial droop related to left neck biopsy. Slurred speech improved.), Depressed mood/affect Reflexes: Bicep (R): 3+, Bicep (L): 3+ - LABS Result Diagrams: 11/13/17 05:58 11/13/17 05:58 - DIAGNOSTIC IMAGING Diagnostic Imaging Results: Final report reviewed Diagnostic Imaging Results Comments: EXAM: MRI BRAIN WITHOUT CONTRAST EXAM DATE: 11/12/2017 02:26 PM. Impressions: 1. No acute/subacute ischemic change. 2. Multifocal suspected old ischemic disease as detailed, superimposed moderate scattered dense white matter disease most likely related to chronic small vessel ischemic disease. 3. Mild generalized brain atrophy. EXAM: CT ANGIOGRAM NECK EXAM DATE: 11/11/2017 12:34 PM. IMPRESSION: 1. Concurrent dictated CTA head has been dictated separately. 2. Intracranial vertebral arteries are discussed with the separately dictated CTA head. Moderate atherosclerosis left vertebral artery origin, maximal stenosis 40 -50%. The remaining left extracranial vertebral arteries unremarkable. The extracranial right vertebral artery is unremarkable. 3. No hemodynamically significant stenosis involving the extracranial carotid systems on either side. 4. The patient is likely status post left parotidectomy and left neck dissection. There is a nonspecific peripheral enhancing fluid collection within the left lateral neck just inferior to the expected location of the parotid gland with foci of gas, measuring maximally approximately 1.4 x 2.2 x 4.2 cm. Fluid collection is nonspecific for postoperative seroma versus abscess. Recommend clinical correlation. EXAM: CT ANGIOGRAM HEAD. CT SCAN OF THE HEAD WITH CONTRAST EXAM DATE: 11/11/2017 12:34 PM IMPRESSION: 1. Concurrently obtain noncontrast CT head has been dictated separately. 2. No abnormal enhancement on the postcontrast CT head. 3. Extensive atherosclerotic vascular disease as detailed above and summarized below. No CTA evidence of hemodynamically large vessel occlusion, acute dissection, aneurysm, or vascular malformation within intracranial arteries. 4. Moderate to severe atherosclerosis right carotid siphon, maximal stenosis likely greater than 70%. 5. Moderate to severe atherosclerosis left carotid siphon, maximal stenosis likely greater than 70%. 6. Moderate atherosclerosis V4 segment right vertebral artery, maximal stenosis 20-30%. 7. Severe atherosclerosis V4 segment left vertebral artery, maximal stenosis likely greater than 70-80 %. 8. Approximately 50% narrowing distal basilar artery. 9. Diffuse irregularity of the M1 segment right MCA with up to 20-30% narrowing. 10. Approximately 60% narrowing superiorly directed M2 branch left MCA 11. Approximately 50% narrowing P1 and P2 segments of the left CALCULUS TUTOR. 12. Approximately 50% narrowing distal P1 and mid P2 segments of the left CALCULUS TUTOR. EXAM: CT HEAD EXAM DATE: 11/11/2017 12:08 PM. IMPRESSION: Generalized age-related and chronic vascular changes without evidence of acute intracranial abnormality. ECHOCARDIOGRAM: Final read by Dr. Helga Wang: 11/12/17 1. Mild concentric LV hypertrophy. 2. Overall LV systolic function is normal with an EF of 60-65%. 3. The RV systolic function is normal. 4. Contrast injection of agitated saline is negative for an atrial shunt. - FOLLOW UP Follow Up: Disposition: 06 Home Health Service Condition: Fair Prescriptions: Cellulose Gum [Thik & Clear] 1 each PO QID #120 packet Diet: Soft (nectar thick liquids) Activity Restrictions: Activity as Tolerated Shower Restrictions: No Driving Restrictions: Yes Weight Bearing: Full Weight Instruction Topics: Stroke Sx Additional Instructions or Follow Up instructions: You were admitted with stroke symptoms, that slowly improved until the time of discharge. The brain MRI showed no evidence of acute stroke, but chronic generalized brain atrophy (shrinking). A CT angiogram of your neck was completed and showed your left vertebral artery is narrowed by 40-50%, which may explain your stroke like symptoms. A speech evaluation was completed and results indicate that you should thicken any liquids until you follow up with your primary provider. You underwent physical and occupational therapies who indicated that you are not at an increased risk for injury if you go home. A social and political studies professor met with you and your sister, and you were given a list of home care providers for your first several days a home if needed. Please see your PCP within on week. - TIME SPENT Time Spent in Discharge (Minutes): 50
--- NOTE | 2017-11-13 12:00 | Discharge Plan ---
Discharge Plan Disposition: 06 Home Health Service Condition: Fair Prescriptions: Cellulose Gum [Thik & Clear] 1 each PO QID #120 packet Diet: Soft (nectar thick liquids) Activity Restrictions: Activity as Tolerated Shower Restrictions: No Driving Restrictions: Yes Weight Bearing: Full Weight Instruction Topics: Stroke Sx Additional Instructions or Follow Up instructions: You were admitted with stroke symptoms, that slowly improved until the time of discharge. The brain MRI showed no evidence of acute stroke, but chronic generalized brain atrophy (shrinking). A CT angiogram of your neck was completed and showed your left vertebral artery is narrowed by 40-50%, which may explain your stroke like symptoms. A speech evaluation was completed and results indicate that you should thicken any liquids until you follow up with your primary provider. You underwent physical and occupational therapies who indicated that you are not at an increased risk for injury if you go home. A forensic social worker met with you and your sister, and you were given a list of home care providers for your first several days a home if needed. Please see your PCP within on week. Follow-Up Care: Outpatient Rehab - ST No Smoking: If you smoke, Please STOP! Call for help.
== END 2017-11-13 12:48 | disposition home health service (06) | DRG 66 ==
LOC: ED 11:43 → MS2 15:17
PROVIDERS: ADMIT Nurse Practitioner Gerontology; ATTEND Nurse Practitioner
DX: I63.9 Cerebral infarction, unspecified (principal); I48.91 Unspecified atrial fibrillation; R47.02 Dysphasia; R47.01 Aphasia; Z86.73 Personal history of transient ischemic attack (TIA), and cerebral infarction without residual deficits; I48.2 Chronic atrial fibrillation; I10 Essential (primary) hypertension; C44.92 Squamous cell carcinoma of skin, unspecified
CPT/HCPCS: 36415; 70450; 70496; 70498; 70551; 80053; 80061; 81001; 81003; 83605; 83690; 83721; 83735; 84484; 85025; 85610; 85730; 87086; 93005; 93306; 96374; 99284; 99285

== ENCOUNTER 2018-01-10 17:19 | Outpatient (CLI) | payer MEDICARE, OTHER | END 2018-01-10 17:20 | disposition short-term general hospital (02) | LOC: EMS 17:19 | PROVIDERS: ATTEND Surgery | DX: R29.6 Repeated falls (principal); R63.4 Abnormal weight loss; R53.1 Weakness; R55 Syncope and collapse | CPT/HCPCS: A0425; A0427; A0888 ==

== ENCOUNTER 2018-10-25 18:39 | Outpatient (CLI) | payer MEDICARE, OTHER | END 2018-10-25 18:40 | disposition critical access hospital (66) | LOC: EMS 18:39 | PROVIDERS: ATTEND Surgery | DX: R41.82 Altered mental status, unspecified (principal); R47.9 Unspecified speech disturbances | CPT/HCPCS: A0425; A0427 ==

== ENCOUNTER 2018-10-25 18:54 | Inpatient (IN) | payer MEDICARE, OTHER ==
--- NOTE | 2018-10-25 19:01 | ED Physician Documentation ---
PD HPI ALTERED MENTAL STATUS - Stated complaint Stated Complaint: ALOC - History obtained from History obtained from: Patient, EMS - History of Present Illness Timing - onset: Unknown (found altered at 1530 today at [facility].) Quality / character: Less responsive, Confused Associated symptoms: No: Fever Contributing factors: Anticoagulated (plavix), Other (history of TIA/Stroke) Basline status: Alert and oriented X 3 Treatment TEACHER ADULT EDUCATION: Accucheck Recently seen: Not recently seen Review of Systems Unable to obtain: AMS (aphasic) PD PAST MEDICAL HISTORY - Past Medical History Past Medical History: Yes Cardiovascular: Atrial fibrillation Neuro: CVA, TIA HEENT: None - Past Surgical History Past Surgical History: Yes General: Other - Present Medications Home Medications: Ambulatory Orders Medication Instructions Recorded Confirmed Clopidogrel Bisulfate [Clopidogrel] 75 mg PO DAILY 11/11/17 11/11/17 Furosemide 80 mg PO DAILY 11/11/17 11/11/17 Losartan Potassium 50 mg PO DAILY 11/11/17 11/11/17 Meclizine HCl [Motion Sickness 25 mg PO QPM 11/11/17 11/11/17 Relief] Cellulose Gum [Thik & Clear] 1 each PO QID #120 packet 11/13/17 - Allergies Allergies/Adverse Reactions: Allergies Allergy/AdvReac Type Severity Reaction Status Date / Time No Known Drug Allergies Allergy Verified 11/11/17 16:46 - Social History Does the pt smoke?: No Smoking Status: Never smoker Does the pt drink ETOH?: No Does the pt have substance abuse?: No PD ED PE NORMAL - Vitals Vital signs reviewed: Yes - General General: No acute distress, Other (alert, aphasic) - HEENT HEENT: Atraumatic, PERRL, Moist mucous membranes - Neck Neck: Supple, no meningeal sign, No bony TTP - Cardiac Cardiac: RRR - Respiratory Respiratory: No respiratory distress, Clear bilaterally - Abdomen Abdomen: Soft, Non tender, Non distended - Back Back: No spinal TTP - Derm Derm: Warm and dry - Extremities Extremities: No deformity, No edema, Other (not following commands) - Neuro Neuro: Other (alert, non-verbal) Results - Vitals Vitals: Vital Signs - 24 hr 10/25/18 10/25/18 10/25/18 18:55 19:34 20:04 Temperature 36.9 C Heart Rate 65 76 71 Respiratory 20 20 18 Rate Blood Pressure 121/59 L 165/93 H 176/86 H O2 Saturation 93 100 99 10/25/18 10/25/18 20:30 21:00 Temperature Heart Rate 67 67 Respiratory 12 14 Rate Blood Pressure 182/86 H 179/79 H O2 Saturation 100 100 Oxygen O2 Source Room air - EKG (time done) 1923 Rate: Rate (enter#) (68) Rhythm: NSR [place]: Normal Intervals: Normal [place] QRS: Normal Ischemia: Normal ST segments - Labs Labs: Laboratory Tests 10/25/18 10/25/18 10/25/18 18:59 18:59 18:59 WBC 7.5 RBC 3.93 L Hgb 12.7 L Hct 38.8 L MCV 98.7 H MCH 32.3 H MCHC 32.7 RDW 13.2 Plt Count 264 MPV 10.1 Neut # (Auto) 5.1 Lymph # (Auto) 1.3 L [place] # (Auto) 0.8 Eos # (Auto) 0.2 Baso # (Auto) 0.1 Absolute Nucleated RBC 0.00 Nucleated RBC % 0.0 Sodium 142 Potassium 4.0 Chloride 106 Carbon Dioxide 19 L Anion Gap 17.0 H BUN 21 H Creatinine 1.0 Estimated GFR (MDRD) 71 L Glucose 106 H Calcium 9.4 Total Bilirubin 0.5 AST 15 ALT 14 Alkaline Phosphatase 56 Total Protein 7.2 Albumin 3.8 Globulin 3.4 Albumin/Globulin Ratio 1.1 Lipase 24 TSH 2.38 Urine Color Urine Clarity Urine pH Ur Specific [place] Urine Protein Urine Glucose (UA) Urine Ketones Urine Occult Blood Urine Nitrite Urine Bilirubin Urine Urobilinogen Ur Leukocyte Esterase Urine RBC Urine WBC Ur Squamous Epith Cells Urine Bacteria Ur Microscopic Review Urine Culture Comments Salicylates < 6.0 Urine Opiates Screen Ur Oxycodone Screen Urine Methadone Screen Ur Propoxyphene Screen Acetaminophen < 10 L Ur Barbiturates Screen Ur Tricyclics Screen Ur Phencyclidine Scrn Ur Amphetamine Screen U Methamphetamines Scrn U Benzodiazepines Scrn Urine Cocaine Screen U Cannabinoids Screen Ethyl Alcohol < 5.0 10/25/18 20:03 WBC RBC Hgb Hct MCV MCH MCHC RDW Plt Count MPV Neut # (Auto) Lymph # (Auto) [place] # (Auto) Eos # (Auto) Baso # (Auto) Absolute Nucleated RBC Nucleated RBC % Sodium Potassium Chloride Carbon Dioxide Anion Gap BUN Creatinine Estimated GFR (MDRD) Glucose Calcium Total Bilirubin AST ALT Alkaline Phosphatase Total Protein Albumin Globulin Albumin/Globulin Ratio Lipase TSH Urine Color BROWN Urine Clarity HAZY Urine pH 6.5 Ur Specific [place] 1.020 Urine Protein 100 H Urine Glucose (UA) NEGATIVE Urine Ketones 15 H Urine Occult Blood LARGE H Urine Nitrite NEGATIVE Urine Bilirubin NEGATIVE Urine Urobilinogen 0.2 (NORMAL) Ur Leukocyte Esterase NEGATIVE Urine RBC TNTC H Urine WBC 0-3 Ur Squamous Epith Cells NONE SEEN Urine Bacteria None Seen Ur Microscopic Review INDICATED Urine Culture Comments NOT INDICATED Salicylates Urine Opiates Screen POSITIVE H Ur Oxycodone Screen NEGATIVE Urine Methadone Screen NEGATIVE Ur Propoxyphene Screen NEGATIVE Acetaminophen Ur Barbiturates Screen NEGATIVE Ur Tricyclics Screen NEGATIVE Ur Phencyclidine Scrn NEGATIVE Ur Amphetamine Screen NEGATIVE U Methamphetamines Scrn NEGATIVE U Benzodiazepines Scrn NEGATIVE Urine Cocaine Screen NEGATIVE U Cannabinoids Screen NEGATIVE Ethyl Alcohol - Rads (name of study) head CT Radiology: Prelim report reviewed, EMP read contemporaneously, See rad report (Stable age-related cortical atrophic changes and bilateral lacunar infarcts without evidence of acute intracranial abnormality. ) PD MEDICAL DECISION MAKING - ED course Complexity details: reviewed results, re-evaluated patient, considered differential, d/w storage management consultant ED course: 83-year-old male presents to the emergency department with altered mental status. Unclear etiology. He is apparently normally verbal and ambulatory. Has a nonfocal exam today but is nonverbal. No acute findings on laboratory testing. No acute findings on head CT. He is unchanged in the emergency department. Will place in observation to see if he clears. Discussed with the hospitalist, Dr. Valentine who accepts. This document was made in part using voice recognition software. While efforts are made to proofread this document, sound alike and grammatical errors may occur. Departure - Departure Disposition: ED Place in Observation Clinical Impression: Aphasia Altered mental status Qualifiers: Altered mental status type: unspecified Qualified Code(s): R41.82 - Altered mental status, unspecified Condition: Stable Discharge Date/Time: 10/25/18 21:35
[2018-10-25 19:05] LABS: BASOPHILS # (AUTO) 0.1 10^3/uL (0.0-0.1); BASOPHILS % (AUTO) 0.8 %; EOSINOPHILS # (AUTO) 0.2 10^3/uL (0.0-0.7); EOSINOPHILS % (AUTO) 2.1 %; HGB - HEMOGLOBIN 12.7 g/dL (14.0-18.0); LYMPHOCYTES # (AUTO) 1.3 10^3/uL (1.5-3.5); LYMPHOCYTES % (AUTO) 17.3 %; MEAN CORPUSCULAR HEMOGLOBIN 32.3 pg (27.0-31.0); MEAN CORPUSCULAR HGB CONC 32.7 g/dL (32.0-36.0); MEAN CORPUSCULAR VOLUME 98.7 fL (80.0-94.0); MEAN PLATELET VOLUME 10.1 fL (7.4-11.4); MONOCYTES # (AUTO) 0.8 10^3/uL (0.0-1.0); MONOCYTES % (AUTO) 10.7 %; NEUTROPHILS # (AUTO) 5.1 10^3/uL (1.5-6.6); NEUTROPHILS % (AUTO) 68.6 %; PLT - PLATELET COUNT 264 10^3/uL (130-450); RED BLOOD COUNT 3.93 10^6/uL (4.70-6.10); RED CELL DISTRIBUTION WIDTH 13.2 % (12.0-15.0); WHITE BLOOD COUNT 7.5 x10^3/uL (4.8-10.8)
[2018-10-25 19:21] LABS: ACETAMINOPHEN < 10 ug/mL (10-30); ALBUMIN 3.8 g/dL (3.2-5.5); ALBUMIN/GLOBULIN RATIO 1.1 (1.0-2.2); ALKALINE PHOSPHATASE 56 IU/L (42-121); ALT ALANINE AMINOTRANSFERASE 14 IU/L (10-60); AST ASPARTATE AMINOTRANSFERASE 15 IU/L (10-42); BILIRUBIN,TOTAL 0.5 mg/dL (0.2-1.0); BUN - BLOOD UREA NITROGEN 21 mg/dL (6-20); CALCIUM 9.4 mg/dL (8.5-10.3); CARBON DIOXIDE - CO2 19 mmol/L (21-32); CHLORIDE 106 mmol/L (101-111); GFR - MDRD 71 (>89); GLUCOSE 106 mg/dL (70-100); LIPASE 24 U/L (22-51); SALICYLATE < 6.0 mg/dL; SODIUM 142 mmol/L (135-145); TOTAL PROTEIN 7.2 g/dL (6.7-8.2)
--- NOTE | 2018-10-25 19:46 | CT Report ---
Reason: ALOC Procedure Date: 10/25/2018 Accession Number: [id number] / [id number] Procedure: CT - HEAD WO CPT Code: FULL RESULT: EXAM: CT HEAD EXAM DATE: 10/25/2018 07:22 PM. CLINICAL HISTORY: Altered level of consciousness. COMPARISON: HEAD ANGIO 11/11/2017 12:23 PM. TECHNIQUE: Multiaxial CT images were obtained from the foramen magnum to the vertex. Reformats: Sagittal and coronal. IV contrast: None. In accordance with CT protocol optimization, one or more of the following dose reduction techniques were utilized for this exam: automated exposure control, adjustment of mA and/or KV based on patient size, or use of iterative reconstructive technique. FINDINGS: Parenchyma: No intraparenchymal hemorrhage. Stable lacunar infarcts in the basal ganglia. No evidence of mass, midline shift, or CT findings of acute infarction. Cantor-white differentiation is distinct. Stable chronic microangiopathic white matter changes are evident. Extraaxial Spaces: Normal for age. No subdural or epidural collections identified. Ventricles: The ventricles and cortical sulci are prominent, consistent with age-related tissue loss. Sinuses and orbits: Imaged paranasal sinuses, orbits, and mastoids show no significant abnormality. Bones: No evidence of fracture or calvarial defect. Other: None. IMPRESSION: Stable age-related cortical atrophic changes and bilateral lacunar infarcts without evidence of acute intracranial abnormality. RADIA
[2018-10-25 20:09] LABS: MUDS CUTOFF CONCENTRATIONS CUTOFF CONC BELOW:
[2018-10-25 20:12] LABS: BILIRUBIN,URINE NEGATIVE (NEGATIVE); CLARITY,URINE HAZY (CLEAR); GLUCOSE, URINE (UA) NEGATIVE (NEGATIVE); KETONES,URINE (UA) 15 mg/dL (NEGATIVE); LEUKOCYTE ESTERASE, URINE NEGATIVE (NEGATIVE); NITRITE,URINE NEGATIVE (NEGATIVE); OCCULT BLOOD,URINE LARGE (NEGATIVE); PH,URINE 6.5 PH (5.0-7.5); PROTEIN,URINE 100 mg/dL (NEGATIVE); UROBILINOGEN,URINE 0.2 (NORMAL) E.U./dL (NORMAL)
[2018-10-25 20:19] LABS: BACTERIA,URINE None Seen /HPF (None Seen); RBC,URINE TNTC /HPF (0-5); SQUAMOUS EPITHELIAL CELL,UR NONE SEEN (<= Few)
[2018-10-25 20:23] LABS: COCAINE SCREEN URINE NEGATIVE (NEGATIVE); METHAMPHETAMINES SCREEN, URINE NEGATIVE (NEGATIVE); OPIATE SCREEN, URINE POSITIVE (NEGATIVE)
[2018-10-25 20:24] LABS: AMPHETAMINE SCREEN,URINE NEGATIVE (NEGATIVE); BENZODIAZEPINES SCREEN, URINE NEGATIVE (NEGATIVE); METHADONE SCREEN, URINE NEGATIVE (NEGATIVE); OXYCODONE SCREEN, URINE NEGATIVE (NEGATIVE); PROPOXYPHENE SCREEN, URINE NEGATIVE (NEGATIVE); TRICYCLIC ANTIDEPRESSANT,URINE NEGATIVE (NEGATIVE)
[2018-10-25] MEDS ORDERED: SODIUM CHLORIDE FLUSH 0.9% 10 ML SYRINGE IVP PRN (21:04)
[2018-10-25] MEDS ORDERED: ASPIRIN 300 MG SUPP PR STA (21:05)
--- NOTE | 2018-10-25 21:21 | HISTORY & PHYSICAL EXAMINATION ---
Chief Complaint - Chief Complaint Chief Complaint: Altered mental status History of Present Illness - Admitted From Admitted From:: [facility] - History Obtained From Records Reviewed: Yes History obtained from: ER Physician, EMR Exam Limitations: Patient is aphasic - History of Present Illness HPI Comment/Other: This is an 83 year old male with a past medical history significant for CVA, paroxsymal atrial fibrillation (not on anticoagulation), and hypertension who presents from [facility] this evening after he was noted to have a change in mental status at around 3pm. He was monitored for a few hours with no impro vement and therefore medical attention was seeked. I am unable to obtain history from the patient as he does not answer questions. He was reportedly in his usual state of health yesterday and that at baseline, he is able to communicate and ambulate. His last know normal is unknown but he was found confused and aphasic at 3pm. In the ER, his vitals were relatively unremarkable except for an elevate d blood pressure with systolics in the 160's. He was nonverbal on exam. His labs were unremarkable except for an elevated anion gap of 17 and a bicarbonate of 19. Urinalysis revealed blood but no pyuria. 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 He will be admitted for further workup and observation. Of note, the nurse in the ER was able to speak with the POA who states that they will be flying in tomorrow to visit the patient. The POA will bring all documentation stating they are the POA. They also reported that the patient wishes to be a full code. History - Past Medical History Cardiovascular: reports: Atrial fibrillation Neuro: reports: CVA, TIA HEENT: reports: None - Past Surgical History General: reports: Other - Family & Social History Family History Comment/Other: Patient is unable to participate in conversation. There is no family at bedside therefore currently unable to obtain family history. Social History Notes: Unable to obtain social history as the patient does not participate in conversation. Meds/Allgy - Home Medications Home Medications: Ambulatory Orders Medication Instructions Recorded Confirmed Clopidogrel Bisulfate [Clopidogrel] 75 mg PO DAILY 11/11/17 11/11/17 Furosemide 80 mg PO DAILY 11/11/17 11/11/17 Losartan Potassium 50 mg PO DAILY 11/11/17 11/11/17 Meclizine HCl [Motion Sickness 25 mg PO QPM 11/11/17 11/11/17 Relief] Cellulose Gum [Thik & Clear] 1 each PO QID #120 packet 11/13/17 - Allergies Allergies/Adverse Reactions: Allergies Allergy/AdvReac Type Severity Reaction Status Date / Time No Known Drug Allergies Allergy Verified 11/11/17 16:46 Review of Systems - Other Findings Other Findings: Unable to obtain review of systems as patient does not answer questions. Prior Level of Functionality: Unable to obtain his prior functional status although per last discharge summary, it appears he is able to ambulate with some assistance. Exam - Vital Signs Reviewed Vital Signs: Yes Vital Signs: Vital Signs x48h Temp Pulse Resp BP Pulse Ox 10/25/18 21:00 67 14 179/79 H 100 10/25/18 20:30 67 12 182/86 H 100 10/25/18 20:04 71 18 176/86 H 99 10/25/18 19:34 76 20 165/93 H 100 10/25/18 18:55 36.9 C 65 20 121/59 L 93 - Physical Exam General Appearance: positive: No acute distress, Other (Appears mildly cahectic) Eyes Bilateral: positive: PERRL, Conjunctivae nml ENT: positive: Dry mucous membranes Neck: positive: Nml inspection Respiratory: positive: No respiratory distress, Other (Diminished breath sounds although poor inspiratory effort as he is unable to follow commands.) Cardiovascular: positive: Regular rate & rhythm, No murmur, Extrasystoles. negative: Irregularly irregular, Bradycardia Abdomen: positive: Nml bowel sounds, No distention, Guarding, Other (He appears to have guarding on palpation. Does not appear to be in pain when palpating.) Skin: positive: Color nml, No rash, Warm, Dry Extremities: positive: No pedal edema. negative: Pedal edema Neurologic/Psychiatric: positive: Other (No clonus. He is moving his upper extremities but does not move his lower extremities. He does not follow commands. Will say "OK" at times. Does appear to track my voice with his eyes. Does have right sided facial droop which is not new.) Conclusion/Plan - Problem List (1) Encephalopathy Conclusion/Plan: He has sudden onset aphasia and is not able to follow commands although he does appear to track with his eyes. He does have abdominal guarding on exam and I wonder if he may be constipated which can contribute to delirium/encephalopathy. Labs are relatively unremarkable and imaging of his head revealed old CVA but no acute process. Urinalysis with blood but no pyuria. It appears he had a similar presentation back in October of 2017 and was worked up for a CVA which was negative. His aphasia resolved on it's own at that time. - Will administer rectal aspirin as this may be a TIA/CVA - IV hydration - MRI brain in the AM - Check lactic acid - Obtain abdominal film - Will not check ammonia level as LFT's are normal - Neurochecks (2) Cerebrovascular accident (CVA) Conclusion/Plan: He has history of bilateral lacunar strokes and is on Clopidogrel but not a statin. He is at increased risk due his history of atrial fibrillation and the fact he is not on anticoagulation. Although his current presentation may not be a CVA, it is difficult to rule out and therefore will treat like CVA. - Aspirin 600mg rectally now - Will allow for permissive hypertension - Stroke order set - Speech eval - PT/OT Qualifiers: CVA mechanism: unspecified Qualified Code(s): I63.9 - Cerebral infarction, unspecified (3) Afib Conclusion/Plan: He has paroxsymal atrial fibrillation but is currently in sinus rhythm. Not on anticoagulation or rate control medications for unclear reasons. - Monitor on telemetrt - Will need to obtain further history from family or patient once mental status improves as to why he is not on anticoagulation Qualifiers: Atrial fibrillation type: paroxysmal Qualified Code(s): I48.0 - Paroxysmal atrial fibrillation (4) HTN (hypertension) Conclusion/Plan: He is on Losartan and Furosemide at home. Hypertensive with systolic's in the 160's. - Will allow for permissive hypertension as there is concern this may be a CVA Qualifiers: Hypertension type: essential hypertension Qualified Code(s): I10 - Essential (primary) hypertension - Lab Results Lab results reviewed: Yes Marques Bones: 10/25/18 18:59 10/25/18 18:59 - Diagnostic Imaging Results Diagnostic Imaging Results: positive: Final report reviewed - EKG Results EKG Interpreted Independently: Yes EKG Comparison: Changed from prior EKG EKG Findings: Sinus rhythm with PVC's. No ischemic changes. Evidence of Q waves. No longer in atrial fibrillation. Core Measures - Anticipated LOS I expect patient to be DC'd or transferred within 96 hours.: Yes - Issues Hospital Issues and Management Plan: Encephalopathy requiring further workup. - DVT/VTE - Prophylaxis VTE/DVT Device ordered at admit?: Yes VTE/DVT Prophylaxis med ordered at admit?: Yes
--- NOTE | 2018-10-25 21:54 | XRAY Report ---
Reason: Abdominal guarding. Procedure Date: 10/25/2018 Accession Number: [id number] / [id number] Procedure: XR - Abdomen 1 View X-Ray CPT Code: 80203 FULL RESULT: EXAM: ABDOMEN RADIOGRAPHY EXAM DATE: 10/25/2018 09:21 PM. CLINICAL HISTORY: Abdominal guarding. COMPARISON: None. TECHNIQUE: Single supine view. FINDINGS: Bowel Gas Pattern: The bowel gas pattern is nonspecific. There is mild fecal loading. There is no appreciable free air. An erect view is recommended if free air is considered clinically likely. Other: There are no visible calculi. There is severe degenerative change of the lumbar spine. IMPRESSION: 1. Nonspecific bowel gas pattern. 2. No visible free air. This does not exclude the possibility of free air, and an erect view is recommended if clinically necessary. RADIA
[2018-10-25] MEDS: LACTATED RINGERS 1,000 ML IV SCH (22:04)
[2018-10-25] MEDS: SODIUM CHLORIDE FLUSH 0.9% 10 ML SYRINGE IVP SCH (23:47)
[2018-10-26 05:54] LABS: BASOPHILS % (AUTO) 0.4 %; EOSINOPHILS # (AUTO) 0.2 10^3/uL (0.0-0.7); EOSINOPHILS % (AUTO) 1.9 %; HGB - HEMOGLOBIN 12.4 g/dL (14.0-18.0); LYMPHOCYTES # (AUTO) 1.3 10^3/uL (1.5-3.5); MEAN CORPUSCULAR HEMOGLOBIN 32.7 pg (27.0-31.0); MEAN CORPUSCULAR HGB CONC 32.6 g/dL (32.0-36.0); MEAN CORPUSCULAR VOLUME 100.3 fL (80.0-94.0); MEAN PLATELET VOLUME 10.2 fL (7.4-11.4); MONOCYTES # (AUTO) 0.9 10^3/uL (0.0-1.0); MONOCYTES % (AUTO) 8.8 %; NEUTROPHILS # (AUTO) 7.3 10^3/uL (1.5-6.6); NEUTROPHILS % (AUTO) 75.5 %; PLT - PLATELET COUNT 236 10^3/uL (130-450); RED BLOOD COUNT 3.79 10^6/uL (4.70-6.10); RED CELL DISTRIBUTION WIDTH 13.2 % (12.0-15.0); WHITE BLOOD COUNT 9.6 x10^3/uL (4.8-10.8)
[2018-10-26 06:03] LABS: CALCIUM 9.1 mg/dL (8.5-10.3); CREATININE 0.7 mg/dL (0.6-1.2); PHOSPHORUS 3.1 mg/dL (2.5-4.6)
[2018-10-26] MEDS: HEPARIN 5,000 UNIT/ML VIAL SUBQ SCH ×2 (09:59→21:19)
[2018-10-26] MEDS ORDERED: diazePAM 5 MG TABLET PO ONE (10:22)
[2018-10-26] MEDS: SODIUM CHLORIDE FLUSH 0.9% 10 ML SYRINGE IVP SCH ×3 (10:35→23:23)
[2018-10-26 10:56] LABS: CHOL/HDL RATIO 3.4 (<5.0); CHOLESTEROL 141 mg/dL; HDL CHOLESTEROL 41 mg/dL; LDL CHOLESTEROL,CALCULATED 87 mg/dL; LDL/HDL RATIO 2.1 (<3.6); VLDL CHOLESTEROL 13 mg/dL
--- NOTE | 2018-10-26 12:49 | MRI Report ---
Reason: Encephalopathy, aphasia. Rule out CVA. Procedure Date: 10/26/2018 Accession Number: [id number] / [id number] Procedure: MRI - Brain W/O CPT Code: FULL RESULT: MRI BRAIN WITHOUT CONTRAST INDICATION: 83-year-old male. Encephalopathy. Aphasia. Concern for new CVA. TECHNIQUE: 1. T1-weighted sagittal. 2. Fat saturated T2 coronal. 3. Axial T1, FLAIR, T2, T2*GRE and DWI. COMPARISON: 1. Head CT 10/25/2018. 2. Brain MRI 11/12/2018. FINDINGS: The patient had difficulty holding still for this examination. There is image degradation from patient motion that decreases the diagnostic quality of this study. Again demonstrated is generalized prominence of the cerebral cortical sulci folia with associated ex-vacuo ventriculomegaly essentially unchanged when compared to the previous MRI examination from October of last year. No evidence of hydrocephalus. Old lacunar type infarctions are again noted in the right striatocapsular region, left thalamus and left globus pallidus, unchanged. A mild to moderate amount of white matter disease is again identified in the supratentorial brain, likely representing chronic microangiopathy. Patchy T2 hyperintensity again demonstrated in the raul. Small foci of encephalomalacia are again demonstrated in the upper, anterior and mesial left cerebellum, unchanged. Small foci of encephalomalacia are demonstrated in the lateral aspect of the mid right cerebellum, not identified with certainty on the previous examination and presumably representing a new finding. A small focus of encephalomalacia is again seen in the inferior right cerebellum, unchanged. There appear to be flow voids for the main intracranial arteries. No abnormal diffusion restriction is demonstrated. No evidence of acute or chronic hemorrhage on the T2*GRE sequence. No abnormal extra-axial fluid collection. No mass effect or midline shift. Very limited evaluation of the orbits reveals no gross pathology. There is mucosal thickening in the right maxillary sinus with apparent air-fluid level posteriorly. There is minor mucosal thickening in a few ethmoid air cells. The paranasal sinuses are otherwise clear. No significant mastoid or middle ear effusion is demonstrated. IMPRESSION: 1. Multiple, old, lacunar type infarctions are again noted in the left thalamus and bilateral basal ganglia regions. 2. Small foci of encephalomalacia are demonstrated in bilateral cerebellar hemispheres, likely representing the sequela of remote, minor, embolic type ischemic infarctions. 3. No acute intracranial pathology is identified on this unenhanced brain MRI. In particular, there is no evidence of acute infarction on diffusion-weighted imaging. 4. Incidentally noted is focal absence of normal, T1 hyperintense signal in the loose areolar tissue of the scalp, over the upper head, posteriorly in the midline (see image 11 of series 301). This measures up to about 1.9 cm in maximal AP dimension and appears to be new when compared to the MRI study from October of last year.. The recent head CT demonstrates increased density within the loose areolar tissue in this region with a concave defect in the skin surface of the scalp in this area (see images 17 and 18 of series #[address]). This could represent an ulcerated soft tissue mass (i.e., POssibly some form of ulcerated skin cancer). Clinical correlation is required.
[2018-10-26] MEDS: LACTATED RINGERS 1,000 ML IV SCH (14:13)
--- NOTE | 2018-10-26 19:45 | PROVIDER PROGRESS NOTE ---
Subjective - Prog Note Date Prog Note Date: 10/26/18 Prog Note Time: 14:00 - Subjective Pt reports feeling: No change Subjective: Richard is not interactive and will not participate in his exam. He appears intermittently agitated, although still with aphasia. POA has not been available to update of new head MRI findings. Staff notes that she was going to visit in the AM. Current Medications - Current Medications Current Medications: Active Medications: Aspirin (Sera) 325 mg PO DAILYWM [facility] Atorvastatin Calcium (Lipitor) 80 mg PO QPM [facility] Clopidogrel Bisulfate (Plavix) 75 mg PO DAILY [facility] Finasteride (Proscar) 5 mg PO DAILY [facility] Heparin Sodium (Porcine) () 5,000 unit SUBQ BID [facility] Lactated Ringer's (Lr) 1,000 mls @ 75 mls/hr IV .[id number] [place] Tamsulosin HCl (Flomax) 0.4 mg PO DAILY [facility] HOME meds: Clopidogrel Bisulfate [Clopidogrel] 75 mg PO DAILY 11/11/17 Acetaminophen/Cod 300/30 [Tylenol #3] 1 tab PO QPM 10/26/18 Finasteride 5 mg PO DAILY 10/26/18 Megestrol Acetate 40 mg PO BID 10/26/18 Tamsulosin HCl [Flomax] 0.4 mg PO DAILY 10/26/18 Vitamin E Acetate [Vitamin E] 267 mg TOP QPM 10/26/18 Objective - Vital Signs/Intake & Output Reviewed Vital Signs: Yes Vital Signs: Vital Signs x48h Temp Pulse Resp BP Pulse Ox 10/26/18 16:03 36.5 C 53 L 20 167/64 H 94 10/26/18 14:53 36.4 C L 57 L 18 152/61 H 100 Intake & Output: Intake & Output 10/23/18 10/24/18 10/25/18 10/26/18 23:59 23:59 23:59 23:59 Intake Total 1150 Output Total 1335 Balance -185 - Objective General Appearance: positive: Alert, Moderate distress, Anxious, Lethargic Eyes Bilateral: positive: No lid inflammation Eyes: OU Conjunctivae pale ENT: positive: Pharynx nml, No signs of dehydration Neck: positive: No JVD Respiratory: positive: Chest non-tender, No respiratory distress Cardiovascular: positive: No gallop, Irregularly irregular, Systolic murmur, Decreased pulse(s) Peripheral Pulses: 1+ Radial (R), 1+ Radial (L) Abdomen: positive: Non-tender, Nml bowel sounds Back: positive: Nml inspection Skin: positive: No rash, Warm, Dry, Pallor Extremities: positive: Non-tender, Full ROM, Pedal edema Neurologic/Psychiatric: positive: Disoriented to place, Disoriented to time, Weakness, Sensory loss, Slurred/abnml speech, Depressed mood/affect, Other (advanced dementia) Reflexes: Bicep (R): 2+, Bicep (L): 2+ - Lab Results Fish Bones: 10/26/18 05:43 10/26/18 05:43 Other Labs: Lab Results x24hrs 10/26/18 10/26/18 10/26/18 Range/Units 05:43 05:43 05:43 WBC 9.6 (4.8-10.8) x10^3/uL RBC 3.79 L (4.70-6.10) 10^6/uL Hgb 12.4 L (14.0-18.0) g/dL Hct 38.0 L (42.0-52.0) % MCV 100.3 H (80.0-94.0) fL MCH 32.7 H (27.0-31.0) pg MCHC 32.6 (32.0-36.0) g/dL RDW 13.2 (12.0-15.0) % Plt Count 236 (130-450) 10^3/uL MPV 10.2 (7.4-11.4) fL Neut # (Auto) 7.3 H (1.5-6.6) 10^3/uL Lymph # (Auto) 1.3 L (1.5-3.5) 10^3/uL [place] # (Auto) 0.9 (0.0-1.0) 10^3/uL Eos # (Auto) 0.2 (0.0-0.7) 10^3/uL Baso # (Auto) 0.0 (0.0-0.1) 10^3/uL Absolute Nucleated RBC 0.00 x10^3/uL Nucleated RBC % 0.0 /100WBC Sodium 139 (135-145) mmol/L Potassium 4.1 (3.5-5.0) mmol/L Chloride 105 (101-111) mmol/L Carbon Dioxide 20 L (21-32) mmol/L Anion Gap 14.0 H (6-13) BUN 17 (6-20) mg/dL Creatinine 0.7 (0.6-1.2) mg/dL Estimated GFR (MDRD) 108 (>89) Glucose 98 (70-100) mg/dL Lactic Acid (0.5-2.2) mmol/L Calcium 9.1 (8.5-10.3) mg/dL Phosphorus 3.1 (2.5-4.6) mg/dL Magnesium 2.0 (1.7-2.8) mg/dL Triglycerides 63 ( - 149) mg/dL Cholesterol 141 ( - 199) mg/dL LDL Cholesterol, Calc 87 ( - 129) mg/dL VLDL Cholesterol 13 mg/dL HDL Cholesterol 41 L (60 - ) mg/dL LDL/HDL Ratio 2.1 (<3.6) Cholesterol/HDL Ratio 3.4 (<5.0) Urine Color Urine Clarity (CLEAR) Urine pH (5.0-7.5) PH Ur Specific [place] (1.002-1.030) Urine Protein (NEGATIVE) mg/dL Urine Glucose (UA) (NEGATIVE) mg/dL Urine Ketones (NEGATIVE) mg/dL Urine Occult Blood (NEGATIVE) Urine Nitrite (NEGATIVE) Urine Bilirubin (NEGATIVE) Urine Urobilinogen (NORMAL) E.U./dL Ur Leukocyte Esterase (NEGATIVE) Urine RBC (0-5) /HPF Urine WBC (0-3) /HPF Ur Squamous Epith Cells (<= Few) Urine Bacteria (None Seen) /HPF Ur Microscopic Review Urine Culture Comments Urine Opiates Screen (NEGATIVE) Ur Oxycodone Screen (NEGATIVE) Urine Methadone Screen (NEGATIVE) Ur Propoxyphene Screen (NEGATIVE) Ur Barbiturates Screen (NEGATIVE) Ur Tricyclics Screen (NEGATIVE) Ur Phencyclidine Scrn (NEGATIVE) Ur Amphetamine Screen (NEGATIVE) U Methamphetamines Scrn (NEGATIVE) U Benzodiazepines Scrn (NEGATIVE) Urine Cocaine Screen (NEGATIVE) U Cannabinoids Screen (NEGATIVE) 10/25/18 10/25/18 Range/Units 21:17 20:03 WBC (4.8-10.8) x10^3/uL RBC (4.70-6.10) 10^6/uL Hgb (14.0-18.0) g/dL Hct (42.0-52.0) % MCV (80.0-94.0) fL MCH (27.0-31.0) pg MCHC (32.0-36.0) g/dL RDW (12.0-15.0) % Plt Count (130-450) 10^3/uL MPV (7.4-11.4) fL Neut # (Auto) (1.5-6.6) 10^3/uL Lymph # (Auto) (1.5-3.5) 10^3/uL [place] # (Auto) (0.0-1.0) 10^3/uL Eos # (Auto) (0.0-0.7) 10^3/uL Baso # (Auto) (0.0-0.1) 10^3/uL Absolute Nucleated RBC x10^3/uL Nucleated RBC % /100WBC Sodium (135-145) mmol/L Potassium (3.5-5.0) mmol/L Chloride (101-111) mmol/L Carbon Dioxide (21-32) mmol/L Anion Gap (6-13) BUN (6-20) mg/dL Creatinine (0.6-1.2) mg/dL Estimated GFR (MDRD) (>89) Glucose (70-100) mg/dL Lactic Acid 1.1 (0.5-2.2) mmol/L Calcium (8.5-10.3) mg/dL Phosphorus (2.5-4.6) mg/dL Magnesium (1.7-2.8) mg/dL Triglycerides ( - 149) mg/dL Cholesterol ( - 199) mg/dL LDL Cholesterol, Calc ( - 129) mg/dL VLDL Cholesterol mg/dL HDL Cholesterol (60 - ) mg/dL LDL/HDL Ratio (<3.6) Cholesterol/HDL Ratio (<5.0) Urine Color BROWN Urine Clarity HAZY (CLEAR) Urine pH 6.5 (5.0-7.5) PH Ur Specific [place] 1.020 (1.002-1.030) Urine Protein 100 H (NEGATIVE) mg/dL Urine Glucose (UA) NEGATIVE (NEGATIVE) mg/dL Urine Ketones 15 H (NEGATIVE) mg/dL Urine Occult Blood LARGE H (NEGATIVE) Urine Nitrite NEGATIVE (NEGATIVE) Urine Bilirubin NEGATIVE (NEGATIVE) Urine Urobilinogen 0.2 (NORMAL) (NORMAL) E.U./dL Ur Leukocyte Esterase NEGATIVE (NEGATIVE) Urine RBC TNTC H (0-5) /HPF Urine WBC 0-3 (0-3) /HPF Ur Squamous Epith Cells NONE SEEN (<= Few) Urine Bacteria None Seen (None Seen) /HPF Ur Microscopic Review INDICATED Urine Culture Comments NOT INDICATED Urine Opiates Screen POSITIVE H (NEGATIVE) Ur Oxycodone Screen NEGATIVE (NEGATIVE) Urine Methadone Screen NEGATIVE (NEGATIVE) Ur Propoxyphene Screen NEGATIVE (NEGATIVE) Ur Barbiturates Screen NEGATIVE (NEGATIVE) Ur Tricyclics Screen NEGATIVE (NEGATIVE) Ur Phencyclidine Scrn NEGATIVE (NEGATIVE) Ur Amphetamine Screen NEGATIVE (NEGATIVE) U Methamphetamines Scrn NEGATIVE (NEGATIVE) U Benzodiazepines Scrn NEGATIVE (NEGATIVE) Urine Cocaine Screen NEGATIVE (NEGATIVE) U Cannabinoids Screen NEGATIVE (NEGATIVE) ABX Reporting Has patient been on IV antibiotics over the past 48 hours?: No Assessment/Plan - Problem List (1) Aphasia Impression: - As per [facility], the patient is normally very talkative, and interactive - Still with very little speech today - May be due to the remote, minor embolic type ischemic infarctions that were noted in the bilateral cerebellar hemispheres Plan: Continue to monitor (2) Cerebrovascular accident (CVA) Impression: - New head MRI show; remote, minor embolic type ischemic infarctions that were noted in the bilateral cerebellar hemispheres - multiple old lacunar type infarctions in the left thalamus and bilateral basal ganglia regions - Patient will not participate in his exam, very little eye contact, generalized weakness and aphasia noted Plan: Continue high dose statin, gentle IV fluids, full dose aspirin, and allow passive HTN Qualifiers: CVA mechanism: unspecified Qualified Code(s): I63.9 - Cerebral infarction, unspecified (3) Dementia Impression: - Patient is a resident at [facility], but has not needed a locked dementia unit - Brain imaging several areas of damage of old infarcts, moderate amount of white matter disease in the supratentorial brain Plan: Continue to monitor for improvement in mental status, fall precautions (4) Encephalopathy Impression: - Baseline dementia, now aphasia Plan: Continue to monitor (5) Altered mental status Impression: - Aphasia is new on this admission, and this has not improved Plan: Continue to monitor, treat acute on chronic stroke Qualifiers: Altered mental status type: unspecified Qualified Code(s): R41.82 - Altered mental status, unspecified (6) Afib Impression: - Listed in history, no rate control meds or anticoagulation - SR on admission Plan: Continue to monitor on telemetry if patient tolerates for stroke care Qualifiers: Atrial fibrillation type: paroxysmal Qualified Code(s): I48.0 - Paroxysmal atrial fibrillation (7) Skin lesion of scalp Impression: - Imaging showed a 1.9 cm lesion located within the loose areolar tissue of the scalp which may represent a soft tissue mass Plan: Continue to monitor
[2018-10-26] MEDS ORDERED: ATORVASTATIN 40 MG TABLET PO SCH (21:00)
[2018-10-26] MEDS: CLOPIDOGREL 75 MG TABLET PO SCH (21:16)
[2018-10-26] MEDS: ASPIRIN 325 MG TABLET PO SCH (21:19)
[2018-10-27] MEDS: LACTATED RINGERS 1,000 ML IV SCH ×2 (03:22→15:59)
[2018-10-27] MEDS ORDERED: CLOPIDOGREL 75 MG TABLET PO SCH (09:00)
[2018-10-27] MEDS: FINASTERIDE 5 MG TABLET PO SCH (09:40)
[2018-10-27] MEDS: ASPIRIN 325 MG TABLET PO SCH (09:40)
[2018-10-27] MEDS: TAMSULOSIN 0.4 MG CAPSULE PO SCH (09:40)
[2018-10-27] MEDS: SODIUM CHLORIDE FLUSH 0.9% 10 ML SYRINGE IVP SCH ×2 (09:41→16:59)
[2018-10-27] MEDS: CLOPIDOGREL 75 MG TABLET PO SCH (09:41)
[2018-10-27] MEDS: HEPARIN 5,000 UNIT/ML VIAL SUBQ SCH ×2 (09:42→21:14)
--- NOTE | 2018-10-27 14:42 | Discharge Plan ---
Discharge Plan for SNF / [facility] - Discharge Plan And Transition Orders Problem Reviewed?: Yes Disposition: 01 Home, Self Care Condition: Poor Allergies and Adverse Reactions: Allergies Allergy/AdvReac Type Severity Reaction Status Date / Time cheese AdvReac Mild Unknown Verified 10/26/18 11:01 Milk Containing Products AdvReac Mild Unknown Verified 10/26/18 10:59 - SNF / [facility] Transition Orders Medicare Certification Statement: I certify that [facility] is medically necessary on a continuing basis for any of the conditions for which she/he is receiving care during hospitalization. Notify PCP of admission and forward orders to primary provider for signature. Other Notification Orders: Call PCP immediately if patient develops dyspnea, chest pain/tightness or edema. Additional Bowel Program Orders: If no BM after 2 days, nurse may give M.O.M. 30ml PO PRN and/or ducolax Supp 1 NE and/or [place] 250mg P.O., and/or senna 1-2 tabs PO. On day 3 nurse may give repeat above order until residents constipation is resolved. Medication Orders: PLEASE REFER TO THE DISCHARGE MEDICATION LIST.
--- NOTE | 2018-10-27 15:01 | PROVIDER PROGRESS NOTE ---
Subjective - Prog Note Date Prog Note Date: 10/27/18 - Subjective Pt reports feeling: Improved Subjective: pt's aphasia return to his baseline. he report he ate 100% his breakfast. he report he has no much sleep in the last night. he has no other complaints. pt report pt has cough when pt ate his lunch. ST evaluated pt and recommend dysphagia diet for pt. Pt has 100% sat on room air. Pt's CXR is pending. [facility] nurse evaluate pt and declined pt return to [facility] because [facility] can not take care of pt's dysphagia diet Current Medications - Current Medications Current Medications: Active Medications Aspirin (Sera) 325 mg PO DAILYWM [facility] Last Admin: 10/27/18 09:40 Dose: 325 mg Atorvastatin Calcium (Lipitor) 80 mg PO QPM [facility] Last Admin: 10/26/18 21:16 Dose: 80 mg Clopidogrel Bisulfate (Plavix) 75 mg PO DAILY [facility] Last Admin: 10/27/18 09:41 Dose: 75 mg Finasteride (Proscar) 5 mg PO DAILY [facility] Last Admin: 10/27/18 09:40 Dose: 5 mg Heparin Sodium (Porcine) () 5,000 unit SUBQ BID [facility] Last Admin: 10/27/18 09:42 Dose: 5,000 unit Lactated Ringer's (Lr) 1,000 mls @ 75 mls/hr IV .[id number] [facility] Last Admin: 10/27/18 15:59 Dose: 75 mls/hr Sodium Chloride (Normal Saline Flush 0.9%) 10 ml IVP PRN PRN PRN Reason: NEEDED PER PROVIDER ORDERS Sodium Chloride (Normal Saline Flush 0.9%) 10 ml IVP 0100,0900,1700 [facility] Last Admin: 10/27/18 16:59 Dose: Not Given Tamsulosin HCl (Flomax) 0.4 mg PO DAILY [facility] Last Admin: 10/27/18 09:40 Dose: 0.4 mg Clopidogrel Bisulfate [Clopidogrel] 75 mg PO DAILY 11/11/17 Acetaminophen/Cod 300/30 [Tylenol #3] 1 tab PO QPM 10/26/18 Finasteride 5 mg PO DAILY 10/26/18 Megestrol Acetate 40 mg PO BID 10/26/18 Tamsulosin HCl [Flomax] 0.4 mg PO DAILY 10/26/18 Vitamin E Acetate [Vitamin E] 267 mg TOP QPM 10/26/18 Objective - Vital Signs/Intake & Output Vital Signs: Vital Signs x48h Temp Pulse Pulse Pulse Pulse Resp BP 10/27/18 13:19 36.4 C L 73 18 157/89 H 10/27/18 10:00 84 88 78 10/27/18 07:53 36.5 C 98 20 123/92 H BP BP BP Pulse Ox 10/27/18 13:19 100 10/27/18 10:00 131/74 H 146/94 H 145/78 H 10/27/18 07:53 Intake & Output: Intake & Output 10/24/18 10/25/18 10/26/18 10/27/18 23:59 23:59 23:59 23:59 Intake Total 1150 1706.25 Output Total 2135 1100 Balance -985 606.25 - Objective General Appearance: positive: No acute distress, Alert. negative: Lethargic Eyes Bilateral: positive: Normal inspection, PERRL, No lid inflammation, Conjunctivae nml ENT: positive: ENT inspection nml, Pharynx nml, No signs of dehydration. negative: Purulent nasal drainage, Pharyngeal erythema, Oral lesions Neck: positive: Nml inspection, Thyroid nml, No JVD, Trachea midline. negative: Thyromegaly, Lymphadenopathy (R), Lymphadenopathy (L), Stiff neck, Swelling/bruising, Tracheal deviation Respiratory: positive: Chest non-tender, No respiratory distress, Breath sounds nml. negative: Wheezes, Rales, Rhonchi Cardiovascular: positive: Regular rate & rhythm, No murmur, No gallop. negative: Irregularly irregular, Extrasystoles, Tachycardia, Bradycardia, JVD present, Systolic murmur, Diastolic murmur Peripheral Pulses: 2+ Radial (R), 2+ Radial (L), 2+ Dorsalis pedis (R), 2+ Dorsalis pedis (L) Abdomen: positive: Non-tender, No organomegaly, Nml bowel sounds, No distention. negative: Tenderness, Guarding, Rebound Back: positive: Nml inspection. negative: CVA tenderness (R), CVA tenderness (L) Skin: positive: Color nml, No rash, Warm, Dry. negative: Cyanosis, Diaphoresis, Pallor Extremities: positive: Non-tender, Nml appearance. negative: Calf tenderness, Tessy's sign/cords Neurologic/Psychiatric: positive: Oriented x3, Sensation nml. negative: Weakness, Sensory loss, Facial droop, Slurred/abnml speech, Depressed mood/affect - Lab Results Fish Bones: 10/26/18 05:43 10/26/18 05:43 ABX Reporting Has patient been on IV antibiotics over the past 48 hours?: No Sepsis Event Note (H) - Evaluation Current Stage of Sepsis: Ruled out Assessment/Plan - Problem List (1) Aphasia Impression: (1) Aphasia Impression: resolved as pt's baseline. pt is alert and oriented +3, he know person, location, time. pt has chronic slurred speech (2) TIA Impression: New head MRI show; remote, minor embolic type ischemic infarctions that were noted in the bilateral cerebellar hemispheres, multiple old lacunar type infarctions in the left thalamus and bilateral basal ganglia regions. Patient's focal neurological deficits were resolved today. Plan: Continue dosage 40 mg of statin, gentle IV fluids, full dose aspirin (3) Dementia Impression: stable, pt has significant improved for mental status, fall precautions (4) Encephalopathy Impression: resolved. The cause of encephalopathy is possible from pt's TIA or delirium (5) paroxysmal afib EKG reveals SR now. will continue Aspirin and Plavix now (6) Skin lesion of scalp Impression: - Imaging showed a 1.9 cm lesion located within the loose areolar tissue of the scalp which may represent a soft tissue mass pt report it has been for many years. he had dermatologists to monitor for
--- NOTE | 2018-10-27 18:39 | XRAY Report ---
Reason: cough Procedure Date: 10/27/2018 Accession Number: [id number] / [id number] Procedure: XR - Chest 1 View X-Ray CPT Code: 82632 FULL RESULT: EXAM: CHEST RADIOGRAPHY EXAM DATE: 10/27/2018 04:15 PM. CLINICAL HISTORY: Cough. COMPARISON: XR CHEST PA AND LAT 06/26/2006 1:34 PM. TECHNIQUE: 1 view. Radiograph is taken lordotic FINDINGS: Lungs/Pleura: No focal opacities evident. No pleural effusion. No pneumothorax. Mediastinum: Within exam limitations, the cardiomediastinal contour is normal. Other: None. IMPRESSION: Lordotic positioning, otherwise no acute disease. [facility]
[2018-10-27] MEDS: ATORVASTATIN 40 MG TABLET PO SCH (21:14)
[2018-10-28] MEDS: SODIUM CHLORIDE FLUSH 0.9% 10 ML SYRINGE IVP SCH ×3 (03:19→17:02)
[2018-10-28] MEDS: LACTATED RINGERS 1,000 ML IV SCH ×3 (05:01→19:00)
[2018-10-28] MEDS: FINASTERIDE 5 MG TABLET PO SCH (08:18)
[2018-10-28] MEDS: TAMSULOSIN 0.4 MG CAPSULE PO SCH (08:18)
[2018-10-28] MEDS: CLOPIDOGREL 75 MG TABLET PO SCH (08:18)
[2018-10-28] MEDS: ASPIRIN 325 MG TABLET PO SCH (08:18)
[2018-10-28] MEDS: HEPARIN 5,000 UNIT/ML VIAL SUBQ SCH (08:20)
[2018-10-28 08:34] LABS: BASOPHILS % (AUTO) 0.6 %; EOSINOPHILS # (AUTO) 0.2 10^3/uL (0.0-0.7); EOSINOPHILS % (AUTO) 2.6 %; HGB - HEMOGLOBIN 11.8 g/dL (14.0-18.0); LYMPHOCYTES # (AUTO) 0.9 10^3/uL (1.5-3.5); LYMPHOCYTES % (AUTO) 13.3 %; MEAN CORPUSCULAR HEMOGLOBIN 31.7 pg (27.0-31.0); MEAN CORPUSCULAR HGB CONC 31.9 g/dL (32.0-36.0); MEAN CORPUSCULAR VOLUME 99.5 fL (80.0-94.0); MEAN PLATELET VOLUME 10.4 fL (7.4-11.4); MONOCYTES # (AUTO) 0.6 10^3/uL (0.0-1.0); MONOCYTES % (AUTO) 8.2 %; NEUTROPHILS # (AUTO) 5.1 10^3/uL (1.5-6.6); NEUTROPHILS % (AUTO) 74.6 %; PLT - PLATELET COUNT 238 10^3/uL (130-450); RED BLOOD COUNT 3.72 10^6/uL (4.70-6.10); RED CELL DISTRIBUTION WIDTH 13.3 % (12.0-15.0); WHITE BLOOD COUNT 6.8 x10^3/uL (4.8-10.8)
[2018-10-28 08:55] LABS: CALCIUM 9.3 mg/dL (8.5-10.3); CREATININE 0.7 mg/dL (0.6-1.2)
[2018-10-28] MEDS ORDERED: ZINC OXIDE 20% OINT 28.35 GM TUBE TOP PRN (11:12)
[2018-10-28] MEDS: VANCOMYCIN 125 MG CAPSULE PO SCH ×4 (11:16→21:16)
--- NOTE | 2018-10-28 14:50 | PROVIDER PROGRESS NOTE ---
Subjective - Subjective Pt reports feeling: Improved Subjective: pt continue to have conversation with me, report he had multiple diarrhea but denies abdominal pain, nausea or vomiting. Pt also denies fever, chill, cough, chest pain or shortness of breath. Current Medications - Current Medications Current Medications: Active Medications Aspirin (Sera) 325 mg PO DAILYWM [facility] Last Admin: 10/28/18 08:18 Dose: 325 mg Atorvastatin Calcium (Lipitor) 40 mg PO QPM [facility] Last Admin: 10/27/18 21:14 Dose: 40 mg Clopidogrel Bisulfate (Plavix) 75 mg PO DAILY [facility] Last Admin: 10/28/18 08:18 Dose: 75 mg Finasteride (Proscar) 5 mg PO DAILY [facility] Last Admin: 10/28/18 08:18 Dose: 5 mg Lactated Ringer's (Lr) 1,000 mls @ 75 mls/hr IV .[id number] [facility] Last Admin: 10/28/18 05:13 Dose: 75 mls/hr Multi-Ingredient Ointment (Zinc Oxide) 1 applic TOP PRN PRN PRN Reason: Skin Care Saccharomyces Boulardii (Florastor) 500 mg PO BIDWM [facility] Sodium Chloride (Normal Saline Flush 0.9%) 10 ml IVP PRN PRN PRN Reason: NEEDED PER PROVIDER ORDERS Sodium Chloride (Normal Saline Flush 0.9%) 10 ml IVP 0100,0900,1700 [facility] Last Admin: 10/28/18 08:19 Dose: Not Given Tamsulosin HCl (Flomax) 0.4 mg PO DAILY [facility] Last Admin: 10/28/18 08:18 Dose: 0.4 mg Vancomycin HCl (Vancocin) 125 mg PO QID [facility] Last Admin: 10/28/18 14:12 Dose: 125 mg Clopidogrel Bisulfate [Clopidogrel] 75 mg PO DAILY 11/11/17 Acetaminophen/Cod 300/30 [Tylenol #3] 1 tab PO QPM 10/26/18 Finasteride 5 mg PO DAILY 10/26/18 Megestrol Acetate 40 mg PO BID 10/26/18 Tamsulosin HCl [Flomax] 0.4 mg PO DAILY 10/26/18 Vitamin E Acetate [Vitamin E] 267 mg TOP QPM 10/26/18 Objective - Vital Signs/Intake & Output Reviewed Vital Signs: Yes Vital Signs: Vital Signs x48h Temp Pulse Pulse Pulse Pulse Resp BP 08/08/19 13:00 36.4 C L 75 18 133/69 H 10/28/18 10:32 79 18 152/59 H 10/28/18 08:48 83 106 H 85 10/28/18 08:47 36.5 C 85 16 BP BP BP BP Pulse Ox 10/28/18 13:00 96 10/28/18 10:32 96 10/28/18 08:48 130/76 128/100 H 169/81 H 10/28/18 08:47 169/81 H 100 Intake & Output: Intake & Output 10/25/18 10/26/18 10/27/18 10/28/18 23:59 23:59 23:59 23:59 Intake Total 1150 2892.50 1332.5 Output Total 2135 1100 390 Balance -985 1792.50 942.5 - Objective General Appearance: positive: No acute distress, Alert. negative: Lethargic Eyes Bilateral: positive: Normal inspection, PERRL, No lid inflammation, Conjunctivae nml ENT: positive: ENT inspection nml, Pharynx nml, No signs of dehydration. negative: Purulent nasal drainage, Pharyngeal erythema, Oral lesions Neck: positive: Nml inspection, Thyroid nml, No JVD, Trachea midline. negative: Thyromegaly, Lymphadenopathy (R), Lymphadenopathy (L), Stiff neck, Swelling/bruising, Tracheal deviation Respiratory: positive: Chest non-tender, No respiratory distress, Breath sounds nml. negative: Wheezes, Rales, Rhonchi Cardiovascular: positive: Regular rate & rhythm, No murmur, No gallop. negative: Irregularly irregular, Extrasystoles, Tachycardia, Bradycardia, JVD present, Systolic murmur, Diastolic murmur Peripheral Pulses: 2+ Radial (R), 2+ Radial (L), 2+ Dorsalis pedis (R), 2+ Dorsalis pedis (L) Abdomen: positive: Non-tender, No organomegaly, Nml bowel sounds, No distention. negative: Tenderness, Guarding, Rebound Back: positive: Nml inspection. negative: CVA tenderness (R), CVA tenderness (L) Skin: positive: Color nml, No rash, Warm, Dry. negative: Cyanosis, Diaphoresis, Pallor Extremities: positive: Non-tender, Full ROM, Nml appearance. negative: Calf t enderness, Joint swelling, Tessy's sign/cords Neurologic/Psychiatric: positive: Oriented x3, Sensation nml, Mood/affect nml. negative: Weakness, Sensory loss, Facial droop, Slurred/abnml speech, Depressed mood/affect - Lab Results Fish Bones: 10/28/18 08:17 10/28/18 08:17 Other Labs: Lab Results x24hrs 10/28/18 10/28/18 10/28/18 Range/Units 08:17 08:17 08:01 WBC 6.8 (4.8-10.8) x10^3/uL RBC 3.72 L (4.70-6.10) 10^6/uL Hgb 11.8 L (14.0-18.0) g/dL Hct 37.0 L (42.0-52.0) % MCV 99.5 H (80.0-94.0) fL MCH 31.7 H (27.0-31.0) pg MCHC 31.9 L (32.0-36.0) g/dL RDW 13.3 (12.0-15.0) % Plt Count 238 (130-450) 10^3/uL MPV 10.4 (7.4-11.4) fL Neut # (Auto) 5.1 (1.5-6.6) 10^3/uL Lymph # (Auto) 0.9 L (1.5-3.5) 10^3/uL [place] # (Auto) 0.6 (0.0-1.0) 10^3/uL Eos # (Auto) 0.2 (0.0-0.7) 10^3/uL Baso # (Auto) 0.0 (0.0-0.1) 10^3/uL Absolute Nucleated RBC 0.00 x10^3/uL Nucleated RBC % 0.0 /100WBC Sodium 143 (135-145) mmol/L Potassium 3.6 (3.5-5.0) mmol/L Chloride 110 (101-111) mmol/L Carbon Dioxide 21 (21-32) mmol/L Anion Gap 12.0 (6-13) BUN 11 (6-20) mg/dL Creatinine 0.7 (0.6-1.2) mg/dL Estimated GFR (MDRD) 108 (>89) Glucose 109 H (70-100) mg/dL Calcium 9.3 (8.5-10.3) mg/dL C. difficile Tox B Gene POSITIVE A* (NEGATIVE) ABX Reporting Has patient been on IV antibiotics over the past 48 hours?: Yes Sepsis Event Note (H) - Evaluation Current Stage of Sepsis: Ruled out Assessment/Plan - Problem List (1) Aphasia Impression: 10/28, pt continue to have conversation, aphasia is resolved, speech is as his baseline resolved as pt's baseline. pt is alert and oriented +3, he know person, location, time. pt has chronic slurred speech (2)C.diff diarrhea 10/28 pt report he had multiple diarrhea since from yesterday afternoon until today morning now. pt did not take antibiotics ow. The etiology is Unknown. C.Diff PCR is positive for C.Diff treat with oral Vancomycin hydration with IV of NS continue lab monitor (3) TIA Impression: 10/28 stable, denies acute focal neurological deficits continue Aspirin and home Plavis and Statin continue PT/OT New head MRI show; remote, minor embolic type ischemic infarctions that were noted in the bilateral cerebellar hemispheres, multiple old lacunar type infarctions in the left thalamus and bilateral basal ganglia regions. Patient's focal neurological deficits were resolved today. Plan: Continue dosage 40 mg of statin, gentle IV fluids, full dose aspirin (4) Dementia Impression: stable, pt has significant improved for mental status, fall precautions (5) Encephalopathy Impression: resolved. The cause of encephalopathy is possible from pt's TIA or delirium (6) paroxysmal afib EKG reveals SR now. will continue Aspirin and Plavix now (7) Skin lesion of scalp Impression: - Imaging showed a 1.9 cm lesion located within the loose areolar tissue of the scalp which may represent a soft tissue mass pt report it has been for many years. he had dermatologists to monitor for
[2018-10-28] MEDS: SACCHAROMYCES BOULARDII 250 MG CAPSULE PO SCH (17:02)
[2018-10-28] MEDS: ATORVASTATIN 40 MG TABLET PO SCH (21:16)
[2018-10-29 05:04] LABS: BASOPHILS % (AUTO) 0.3 %; EOSINOPHILS # (AUTO) 0.2 10^3/uL (0.0-0.7); HGB - HEMOGLOBIN 10.1 g/dL (14.0-18.0); LYMPHOCYTES # (AUTO) 1.1 10^3/uL (1.5-3.5); MEAN CORPUSCULAR HEMOGLOBIN 32.4 pg (27.0-31.0); MEAN CORPUSCULAR HGB CONC 32.6 g/dL (32.0-36.0); MEAN CORPUSCULAR VOLUME 99.4 fL (80.0-94.0); MEAN PLATELET VOLUME 10.5 fL (7.4-11.4); MONOCYTES # (AUTO) 0.6 10^3/uL (0.0-1.0); MONOCYTES % (AUTO) 10.3 %; NEUTROPHILS % (AUTO) 67.2 %; PLT - PLATELET COUNT 206 10^3/uL (130-450); RED BLOOD COUNT 3.12 10^6/uL (4.70-6.10); RED CELL DISTRIBUTION WIDTH 13.2 % (12.0-15.0)
[2018-10-29 05:11] LABS: CALCIUM 8.7 mg/dL (8.5-10.3); CREATININE 0.8 mg/dL (0.6-1.2)
[2018-10-29] MEDS: SODIUM CHLORIDE FLUSH 0.9% 10 ML SYRINGE IVP SCH ×3 (05:18→16:18)
[2018-10-29] MEDS ORDERED: POTASSIUM CHLORIDE 20 MEQ TABLET PO ONE (07:21)
[2018-10-29 07:29] VITALS: BP 140/80
[2018-10-29] MEDS: LACTATED RINGERS 1,000 ML IV SCH (08:15)
[2018-10-29] MEDS: FINASTERIDE 5 MG TABLET PO SCH (08:16)
[2018-10-29] MEDS: ASPIRIN 325 MG TABLET PO SCH (08:16)
[2018-10-29] MEDS: TAMSULOSIN 0.4 MG CAPSULE PO SCH (08:16)
[2018-10-29] MEDS: VANCOMYCIN 125 MG CAPSULE PO SCH ×3 (08:16→16:18)
[2018-10-29] MEDS: CLOPIDOGREL 75 MG TABLET PO SCH (08:17)
[2018-10-29] MEDS: SACCHAROMYCES BOULARDII 250 MG CAPSULE PO SCH ×2 (08:18→16:18)
--- NOTE | 2018-10-29 12:29 | Discharge Plan ---
"Discharge Plan for SNF / [facility] - Discharge Plan And Transition Orders Problem Reviewed?: Yes Disposition: 01 Home, Self Care Condition: Poor Allergies and Adverse Reactions: Allergies Allergy/AdvReac Type Severity Reaction Status Date / Time No Known Drug Allergies Allergy Verified 10/28/18 17:56 Health Concerns: C.diff infection with diarrhea, aphasia, skin lesion of scalp Plan of Treatment: you were found to have C.Diff infection with diarrhea, you are prescribed Oral Vancomycin to finish treatment course. For your Aphasia, you return to your baseline to talk, you are prescribed Aspirin and Lipitor for TIA. For skin lesion of scalp, we discuss with you and your DPOA, advise you followup patrol mother as out-pt. Care Goals: stabilization of your medical conditions Assessment: assessment as the above - SNF / LONGTERM Transition Orders Admit to (Facility): [facility] Under the care of (Name): medical provider of [facility] Discharge Diagnosis: C.diff diarrhea, aphasia, TIA, encephalopathy, Paroxysmal afib, Skin lesion of scalp Medicare Certification Statement: I do not certify that Post Hospital fpc care is medically necessary on a continuing basis for any of the conditions for which she/he is receiving care during hospitalization. Notify PCP of admission and forward orders to primary provider for signature. Weight on admission and: Daily Call PCP immediately if weight increases by: 2 kg Other Notification Orders: Call PCP immediately if patient develops dyspnea, chest pain/tightness or edema. House Bowel Program: Yes Additional Bowel Program Orders: If no BM after 2 days, nurse may give M.O.M. 30ml PO PRN and/or ducolax Supp 1 MT and/or [place] 250mg P.O., and/or senna 1-2 tabs PO. On day 3 nurse may give repeat above order until residents constipation is resolved. Annual Influenza Vaccine (between Nov 21 and June 20): Yes Two-step PPD per [facility] [id number] or approved exception documents: Yes Treatments & Other Orders: you may followup your PCP in one week, continue Oral vancomycin treatment course for C.Diff infection, followup patrol mother for your skin lesion as out-pt. Medication Orders: PLEASE REFER TO THE DISCHARGE MEDICATION LIST. Insulin Orders?: No - Medications New Prescriptions: Aspirin 81 mg PO DAILY #10 tab.chew Atorvastatin [Lipitor] 40 mg PO QPM #10 tablet Vancomycin [Vancocin] 125 mg PO QID #32 capsule - Diet Type: Geriatric Texture: Mech soft Liquids: Thin May have monthly special meal: Yes - Therapies | Activity Rehabilitation Potential: Maximize functional status Activity: Activity as Tolerated"
--- NOTE | 2018-10-29 12:56 | DISCHARGE SUMMARY ---
Discharge Summary Discharge Date: 10/29/18 Discharging Provider: SILVA Primary Care Provider: Dr. Huddleston Condition at Discharge: Poor Discharge Disposition: 01 Home, Self Care Discharge Facility Name: home - DIAGNOSES Admission Diagnoses: (1) Encephalopathy (2) Cerebrovascular accident (CVA) (3) Afib (4) HTN (hypertension) Discharge Diagnoses with Status of Each Condition: (1) Aphasia resolved, as his baseline (2)C.diff diarrhea diarrhea is controlled, continue PO Vancomycin treatment course (3) TIA acute focal neurological deficits is resolved (4) Dementia stable (5) Encephalopathy resolved (6) paroxysmal afib stable. Now he is SR. pt has no home anticoagulation meds (7) Skin lesion of scalp stable, advise MARYANNE, pt followup eeg technologist - HPI History of Present Illness: refer from Dr. Valentine's HPI on 10/25/18 This is an 83 year old male with a past medical history significant for CVA, paroxsymal atrial fibrillation (not on anticoagulation), and hypertension who presents from [facility] this evening after he was noted to have a change in mental status at around 3pm. He was monitored for a few hours with no improvement and therefore medical attention was seeked. I am unable to obtain history from the patient as he does not answer questions. He was reportedly in his usual state of health yesterday and that at baseline, he is able to communicate and ambulate. His last know normal is unknown but he was found confused and aphasic at 3pm. In the ER, his vitals were relatively unremarkable except for an elevated blood pressure with systolics in the 160's. He was nonverbal on exam. His labs were unremarkable except for an elevated anion gap of 17 and a bicarbonate of 19. Urinalysis revealed blood but no pyuria. 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 He will be admitted for further workup and observation. Of note, the nurse in the ER was able to speak with the POA who states that they will be flying in tomorrow to visit the patient. The POA will bring all documentation stating they are the POA. They also reported that the patient wishes to be a full code. - HOSPITAL COURSE Hospital Course: pt was admitted for acute TIA symptoms including aphasia, confused. Pt's MRI and CT of head does not indicate pt has acute stroke. Pt then developed diarrhea, the stool C.diff test reveals pt is positive for C.Diff. After treatment, pt is stable and D/C to [facility] with PO Vancomycin to finish the treatment course. The detail of hospital course is as the following: (1) Aphasia resolved as pt's baseline. Pt's MRI and CT of head does not indicate pt has acute stroke. pt is prescribed 81mg Aspirin and Lipitor for prevention of stroke. (2)C.diff diarrhea diarrhea is controlled, continue oral Vancomycin treatment course (3) TIA acute focal neurological deficits are resolved. Pt was treated and evaluated by PT, no further PT was recommended (4) Dementia stable. DPOA agree pt d/c to [facility] where pt previous live (5) Encephalopathy resolved. It is likely caused by TIA (6) paroxysmal afib EKG reveals SR now. pt has no anticoagulation meds in his home med list. pt is prescribed 81 mg Aspirin and Lipitor 40mg daily. continue home Plavix. followup PCP manage (7) Skin lesion of scalp MRI reveals pt has skin lesion at his scalp. discussed with pt's DPOA, advise pt followup eeg technologist. - ALLERGIES Allergies/Adverse Reactions: Allergies Allergy/AdvReac Type Severity Reaction Status Date / Time No Known Drug Allergies Allergy Verified 10/28/18 17:56 - MEDICATIONS Home Medications: Ambulatory Orders Medication Instructions Recorded Confirmed Clopidogrel Bisulfate [Clopidogrel] 75 mg PO DAILY 11/11/17 10/26/18 Acetaminophen/Cod 300/30 [Tylenol 1 tab PO QPM 10/26/18 10/26/18 #3] Finasteride 5 mg PO DAILY 10/26/18 10/26/18 Megestrol Acetate 40 mg PO BID 10/26/18 10/26/18 Tamsulosin HCl [Flomax] 0.4 mg PO DAILY 10/26/18 10/26/18 Vitamin E Acetate [Vitamin E] 267 mg TOP QPM 10/26/18 10/26/18 Aspirin 81 mg PO DAILY #10 tab.chew 10/29/18 Atorvastatin [Lipitor] 40 mg PO QPM #10 tablet 10/29/18 Vancomycin [Vancocin] 125 mg PO QID #32 capsule 10/29/18 - PHYSICAL EXAM AT DISCHARGE General Appearance: positive: No acute distress, Alert. negative: Lethargic Eyes Bilateral: positive: Normal inspection, PERRL, No lid inflammation, Conjunctivae nml, No scleral icterus ENT: positive: ENT inspection nml, Pharynx nml, No signs of dehydration. negative: Purulent nasal drainage, Pharyngeal erythema, Oral lesions Neck: positive: Nml inspection, Thyroid nml, No JVD, Trachea midline. negative: Thyromegaly, Lymphadenopathy (R), Lymphadenopathy (L), Stiff neck, Swelling/bruising, Tracheal deviation Respiratory: positive: Chest non-tender, No respiratory distress, Breath sounds nml. negative: Wheezes, Rales, Rhonchi Cardiovascular: positive: Regular rate & rhythm, No murmur, No gallop. negative: Irregularly irregular, Extrasystoles, Tachycardia, Bradycardia, JVD present, Systolic murmur, Diastolic murmur Peripheral Pulses: positive: 2+ Abdomen: positive: Non-tender, No organomegaly, Nml bowel sounds, No distention. negative: Tenderness, Guarding, Rebound Back: positive: Nml inspection. negative: CVA tenderness (R), CVA tenderness (L) Skin: positive: No rash, Warm, Dry. negative: Cyanosis, Diaphoresis, Pallor Extremities: positive: Non-tender, Nml appearance. negative: Calf tenderness, Joint swelling, Tessy's sign/cords Neurologic/Psychiatric: positive: Sensation nml, Mood/affect nml. negative: We akness, Sensory loss, Facial droop, Slurred/abnml speech, Depressed mood/affect - LABS Result Diagrams: 10/29/18 04:50 10/29/18 04:50 - SEPSIS Current Stage of Sepsis: Ruled out - FOLLOW UP Follow Up: you may followup your PCP in one week, continue Oral vancomycin treatment course for C.Diff infection, followup eeg technologist for your skin lesion as out-pt. - TIME SPENT Time Spent in Discharge (Minutes): 60
== END 2018-10-29 18:19 | disposition home or self-care (01) | DRG 69 ==
LOC: EDUNIT# → ED 18:54 → MS2 21:04 → OBSVTOIN 10-26 17:02
PROVIDERS: ADMIT Internal Medicine; ATTEND Nurse Practitioner Gerontology
DX: G93.40 Encephalopathy, unspecified (principal); R47.01 Aphasia; I48.0 Paroxysmal atrial fibrillation; I10 Essential (primary) hypertension; Z86.73 Personal history of transient ischemic attack (TIA), and cerebral infarction without residual deficits; Z79.899 Other long term (current) drug therapy; G45.9 Transient cerebral ischemic attack, unspecified; A04.72 Enterocolitis due to Clostridium difficile, not specified as recurrent; G93.49 Other encephalopathy; F03.90 Unspecified dementia, unspecified severity, without behavioral disturbance, psychotic disturbance, mood disturbance, and anxiety; L98.9 Disorder of the skin and subcutaneous tissue, unspecified; Z91.81 History of falling
CPT/HCPCS: 36415; 70450; 70551; 71045; 74018; 80048; 80053; 80061; 81001; 83605; 83690; 83735; 84100; 84443; 85025; 87493; 92610; 93005; 93306; 96360; 96361; 96372; 97161; 99285; A9270; G0378; J7120; J8499; 80306; 80307; 80320; 80329; 81003; 83721; 87086

== ENCOUNTER 2019-09-14 15:47 | Outpatient (CLI) | payer MEDICARE, OTHER | END 2019-09-14 15:48 | disposition short-term general hospital (02) | LOC: EMS 15:47 | PROVIDERS: ATTEND Surgery | DX: M25.552 Pain in left hip (principal); W03.XXXA Other fall on same level due to collision with another person, initial encounter; Y92.099 Unspecified place in other non-institutional residence as the place of occurrence of the external cause | CPT/HCPCS: A0425; A0427; A0888 ==